=== PATIENT | male | born 1960 | race Caucasian/White ===

== ENCOUNTER 2023-02-01 23:36 | Emergency (ER) | payer MEDICARE, OTHER ==
[~2023-02-01] VITALS: Ht 180.3 cm; Wt 108.9 kg
[2023-02-02] MEDS ORDERED: FURO80TA3 PO (03:38)
[2023-02-02 03:56] VITALS: BP 126/71; TEMP 98.3; O2SAT 98
== END 2023-02-02 03:56 | disposition home or self-care (01) ==
LOC: ER 23:48
DX: S52.502A Unspecified fracture of the lower end of left radius, initial encounter for closed fracture (principal); I11.0 Hypertensive heart disease with heart failure; I50.9 Heart failure, unspecified; I48.91 Unspecified atrial fibrillation; E11.9 Type 2 diabetes mellitus without complications; V69.49XA Driver of heavy transport vehicle injured in collision with other motor vehicles in traffic accident, initial encounter; Y93.89 Activity, other specified; Y92.89 Other specified places as the place of occurrence of the external cause; Y99.8 Other external cause status
CPT/HCPCS: 73110

== ENCOUNTER 2023-03-10 17:54 | Inpatient (IN) | payer MEDICARE, OTHER ==
[~2023-03-10] VITALS: Ht 182.9 cm; Wt 74.4 kg
[~2023-03-10 17:54] MED LIST: FURO80TA3 PO
[2023-03-10] MEDS ORDERED: NALOXONE HCL 0.4 MG/ML AMPUL ONE (18:28)
[2023-03-10] MEDS ORDERED: NALOXONE PREFILLED SYRINGE 2 MG/2 ML SYRINGE ONE (18:29)
[2023-03-10] MEDS ORDERED: BUMETANIDE INJ 4 MG in IV NS 0.9% 50 ML IV ONE (18:30)
[2023-03-10] MEDS ORDERED: NALOXONE HCL 0.4 MG/ML AMPUL IV ONE (18:30)
[2023-03-10 18:42] LABS: ABG BASE EXCESS -1.5 mmol/L; ABG OXYGEN SATURATION 96.2 % (92.0-98.5); ABG PCO2 27.8 mmHg (35.0-45.0); ABG PH 7.488 (7.350-7.450); ABG PO2 77.7 mmHg (75.0-100.0); ABG TOTAL HEMOGLOBIN 13.1 G/dL (13.5-18.0); COHb 1.1 % (0.5-1.5); MetHb 0.3 % (0.0-1.5); O2Hb 94.9 % (94.0-97.0); SITE, ABG Right Radial; VENT MODE, BG NB 100%
[2023-03-10 18:56] LABS: BASOPHILS # (AUTO) 0.1 K/uL (0.0-0.2); BASOPHILS % (AUTO) 0.5 % (0.0-2.0); EOSINOPHILS % (AUTO) 0.3 % (0.0-6.0); HEMATOCRIT 38 % (39-51); HEMOGLOBIN 11.8 g/dL (13.5-17.5); LYMPHOCYTES # (AUTO) 0.4 K/uL (0.8-4.8); LYMPHOCYTES % (AUTO) 2.6 % (20.0-44.0); MEAN CORPUSCULAR HEMOGLOBIN 23 PG (26.0-33.0); MEAN CORPUSCULAR HGB CONC 31 g/dl (31.0-36.0); MEAN CORPUSCULAR VOLUME 74 fL (80-96); MONOCYTES # (AUTO) 0.5 K/uL (0.1-1.30); MONOCYTES % (AUTO) 3.5 % (2.0-12.0); NEUTROPHILS # (AUTO) 13.1 K/uL (1.8-8.9); NEUTROPHILS % (AUTO) 93.1 % (43.0-81.0); PLATELET COUNT (AUTO) 137 K/uL (150-450); RED CELL DISTRIBUTION WIDTH 20.8 % (11.5-15.0); WHITE BLOOD COUNT (AUTO) 14.1 K/uL (4.3-11.0)
[2023-03-10 19:05] LABS: SERUM AMMONIA 114 umol/L (11-32)
[2023-03-10 19:09] LABS: ALANINE AMINOTRANSFERASE 53 U/L (12-78); ALBUMIN 2.4 g/dL (3.4-5.0); ALCOHOL, BLOOD < 3 mg/dL (0-10); ALKALINE PHOSPHATASE 106 U/L (46-116); ASPARTATE AMINOTRANSFERASE 129 U/L (15-37); BILIRUBIN,DIRECT 1.2 mg/dL (0.0-0.2); BILIRUBIN,TOTAL 2.3 mg/dL (0.2-1.0); CALCIUM, SERUM 7.8 mg/dL (8.5-10.1); CARBON DIOXIDE 22 mmol/L (21-32); CHLORIDE 94 mmol/L (98-107); CREATININE 2.1 mg/dL (0.6-1.3); GLUCOSE 119 mg/dL (74-106); INR 1.78 (0.91-1.10); PARTIAL THROMBOPLASTIN TIME 38.2 SEC (24.3-34.3); POTASSIUM 2.9 mmol/L (3.5-5.1); PROTHROMBIN TIME 18.2 SECS (9.2-11.1); SODIUM SERUM 132 mmol/L (136-145); TOTAL PROTEIN, SERUM 6.6 g/dL (6.4-8.2); UREA NITROGEN, BLOOD 48 mg/dL (7-18)
[2023-03-10] MEDS ORDERED: IV PREMIX D5 1/2NS + KCL 1,000 ML IV ONE (19:30)
[2023-03-10] MEDS ORDERED: LACTULOSE 10 G/15 ML UDC (PYXIS) PO ONE (19:30)
[2023-03-10] MEDS ORDERED: LACTULOSE 10 G/15 ML UDC (PYXIS) ONE ×2 (19:47→19:48)
[2023-03-10] MEDS ORDERED: IV NS 0.9% 500 ML BAG IV ONE (20:30)
[2023-03-10] MEDS ORDERED: MAGNESIUM HYDROXIDE 30 ML UDC PO PRN (21:00)
[2023-03-10] MEDS ORDERED: NOREPINEPHRINE 8 MG in IV NS 0.9% 242 ML IV PRN (21:00)
[2023-03-10] MEDS ORDERED: ONDANSETRON HCL/PF 4 MG/2 ML VIAL IVP PRN (21:00)
[2023-03-10] MEDS ORDERED: MAG HYDROX/AL HYDROX/SIMETH 30 ML UDC PO PRN (21:00)
[2023-03-10] MEDS ORDERED: ACETAMINOPHEN 325 MG TABLET PO PRN (21:00)
[2023-03-10 22:00] VITALS: BP 95/70; O2SAT 94
[2023-03-10] MEDS: HEPARIN INFUSION/D5W 500 ML IV PRN (22:08)
[2023-03-10 22:30] VITALS: BP 101/84; O2SAT 94
[2023-03-10 23:00] VITALS: BP 121/88; O2SAT 96
[2023-03-10] MEDS ORDERED: PIPERACI/TAZO 3.375GM/D5W 50ML PB IV ONE (23:29)
[2023-03-10 23:30] VITALS: BP 154/143; O2SAT 97
[2023-03-10] MEDS: POTASSIUM CL. PREMIX PERIPHER. 50 ML IV SCH (23:30)
[2023-03-10] MEDS: ZOSYN IVPB 3.375 G in IV D5W 50ml IV SCH (23:31)
[2023-03-10 23:52] LABS: APPEARANCE,URINE CLEAR (CLEAR); BILIRUBIN,URINE 1+ (NEGATIVE); BLOOD, URINE 1+ Ery/uL (NEGATIVE); COLOR,URINE DARK YELLOW (YELLOW); KETONES,URINE TRACE mg/dL (NEGATIVE); LEUKOCYTE ESTERASE ,URINE NEGATIVE (NEGATIVE); NITRITE, URINE NEGATIVE (NEGATIVE); PH,URINE 5.5 (5.0-8.0); PROTEIN,URINE 1+ mg/dl (NEGATIVE); UGLUCOSE NEGATIVE (NEGATIVE)
[2023-03-11] VITALS (78 sets, daily range): BP systolic 87–144; BP diastolic 56–95; TEMP 98–98.4; O2SAT 87–100
[2023-03-11] MEDS ORDERED: VANCOMYCIN 1 GM /D5W 250 ML PB IV ONE
[2023-03-11] MEDS ORDERED: VANCOMYCIN 2 GM in IV D5W 500 ML IV ONE ×2
[2023-03-11] MEDS: LACTULOSE 10 G/15 ML UDC (PYXIS) PO SCH ×5 (00:02→23:20)
[2023-03-11 00:28] LABS: ADD URINE CULTURE NO; BACTERIA,URINE 1+ /HPF (None Seen); HYALINE CASTS, URINE Few /LPF (None Seen); MUCUS,URINE Few /LPF (None Seen); RBC,URINE NONE SEEN /HPF (0-2); SQUAMOUS EPITHELIAL CELL,UR None Seen /HPF (None Seen); WBC,URINE NONE SEEN /HPF (0-3)
[2023-03-11] MEDS: POTASSIUM CL. PREMIX PERIPHER. 50 ML IV SCH ×3 (00:32→02:13)
[2023-03-11 00:45] LABS: BARBITURATE, URINE NEGATIVE (NEGATIVE); BENZODIAZEPINE, URINE NEGATIVE (NEGATIVE); CANNABINOID, URINE NEGATIVE (NEGATIVE); COCCAINE, URINE NEGATIVE (NEGATIVE); OPIATE, URINE NEGATIVE (NEGATIVE); PHENCYCLIDINE SCREEN,URINE NEGATIVE (NEGATIVE)
[2023-03-11 00:56] LABS: AMPHETAMINE, URINE POSITIVE (NEGATIVE)
[2023-03-11] MEDS: IPRATROPIUM NEB FS 0.5 MG/2.5 ML AMPUL.NEB NEB SCH ×7 (01:48→23:44)
[2023-03-11] MEDS: ALBUTEROL HALF STRENGTH 1.25 MG/3 ML VIAL.NEB NEB SCH ×7 (01:48→23:44)
[2023-03-11] MEDS ORDERED: LORAZEPAM INJ 2 MG/ML VIAL IV ONE ×2 (03:00→22:00)
[2023-03-11] MEDS ORDERED: PIPERACI/TAZO 3.375GM/D5W 50ML PB IV ONE (04:19)
[2023-03-11 05:00] LABS: ABG BASE EXCESS -2.9 mmol/L; ABG OXYGEN SATURATION 98.1 % (92.0-98.5); ABG PCO2 30.5 mmHg (35.0-45.0); ABG PH 7.439 (7.350-7.450); ABG PO2 109.4 mmHg (75.0-100.0); ABG TOTAL HEMOGLOBIN 13.5 G/dL (13.5-18.0); AaDO2 573.1 mmHg; MetHb 0.1 % (0.0-1.5); SITE, ABG Right Radial
[2023-03-11] MEDS: ZOSYN IVPB 3.375 G in IV D5W 50ml IV SCH (05:02)
[2023-03-11 05:23] LABS: BASOPHILS % (AUTO) 0.1 % (0.0-2.0); EOSINOPHILS % (AUTO) 0.1 % (0.0-6.0); HEMATOCRIT 38 % (39-51); HEMOGLOBIN 12.2 g/dL (13.5-17.5); LYMPHOCYTES # (AUTO) 0.3 K/uL (0.8-4.8); LYMPHOCYTES % (AUTO) 2.8 % (20.0-44.0); MEAN CORPUSCULAR HEMOGLOBIN 24 PG (26.0-33.0); MEAN CORPUSCULAR HGB CONC 32 g/dl (31.0-36.0); MEAN CORPUSCULAR VOLUME 74 fL (80-96); MONOCYTES # (AUTO) 0.3 K/uL (0.1-1.30); MONOCYTES % (AUTO) 2.7 % (2.0-12.0); NEUTROPHILS # (AUTO) 8.9 K/uL (1.8-8.9); NEUTROPHILS % (AUTO) 94.3 % (43.0-81.0); PLATELET COUNT (AUTO) 111 K/uL (150-450); RED BLOOD CELL COUNT(AUTO) 5.12 MIL/uL (4.5-6.0); RED CELL DISTRIBUTION WIDTH 20.8 % (11.5-15.0); WHITE BLOOD COUNT (AUTO) 9.4 K/uL (4.3-11.0)
[2023-03-11 05:34] LABS: CALCIUM, SERUM 7.8 mg/dL (8.5-10.1); CREATININE 2.5 mg/dL (0.6-1.3); MAGNESIUM 1.6 mg/dL (1.8-2.4); PHOSPHORUS 3.5 mg/dL (2.5-4.9); POTASSIUM 3.4 mmol/L (3.5-5.1)
[2023-03-11] MEDS: HYDROCORTISONE SOD SUCCINATE 100 MG/2 ML VIAL IV SCH ×3 (09:22→21:00)
[2023-03-11] MEDS: Magnesium 1GM/D5W 100ML PREMIX 100 ML IV SCH ×2 (09:34→11:18)
[2023-03-11] MEDS: NOREPINEPHRINE 8 MG in IV NS 0.9% 242 ML IV PRN ×2 (09:38→18:50)
[2023-03-11] MEDS ORDERED: POTASSIUM CHLORIDE 10 MEQ TABLET.SA PO SCH (10:00)
[2023-03-11] MEDS: PIPERACILLIN /TAZOBACTAM 3.375 G in IV D5W 100 ML IV SCH ×2 (10:47→18:32)
[2023-03-11] MEDS ORDERED: POTASSIUM CL. PREMIX PERIPHER. 50 ML IV SCH (11:00)
[2023-03-11] MEDS: BLOOD SUGAR DIAGNOSTIC 1 EACH STRIP IN SCH ×3 (11:20→23:20)
[2023-03-11] MEDS ORDERED: DEXTROSE 50%-WATER 50 ML DISP.SYRIN IV PRN (11:30)
[2023-03-11] MEDS: RIFAXIMIN 550 MG TABLET PO SCH ×2 (12:55→17:20)
[2023-03-11] MEDS ORDERED: LINA5TAB PO (16:28)
[2023-03-11] MEDS ORDERED: FURO80TA85 PO (16:28)
[2023-03-11] MEDS ORDERED: METF-442 PO (16:28)
[2023-03-11] MEDS ORDERED: METO2.5T2 PO (16:28)
[2023-03-11] MEDS ORDERED: FAMO-131 PO (16:28)
[2023-03-11] MEDS ORDERED: ATOR40TA PO (16:28)
[2023-03-11] MEDS ORDERED: DAPA10TA PO (16:28)
[2023-03-11] MEDS ORDERED: NAPR-1192 PO (16:28)
[2023-03-11] MEDS ORDERED: IBUP-1955 PO (16:28)
[2023-03-11] MEDS ORDERED: BUME2TAB7 PO (16:28)
[2023-03-11] MEDS ORDERED: LISI-768 PO (16:28)
[2023-03-11] MEDS ORDERED: POTA20TA83 PO (16:28)
[2023-03-11] MEDS ORDERED: RIVA10TA PO (16:28)
[2023-03-11] MEDS ORDERED: TADA20TA PO (16:28)
[2023-03-11] MEDS: INSULIN REGULAR, HUMAN 100 UNIT/ML 3 ML VIAL SQ PRN ×2 (17:33→23:22)
[2023-03-11] MEDS: VANCOMYCIN 1.25 GM in IV D5W 250 ML IV SCH (23:01)
[2023-03-12] VITALS (70 sets, daily range): BP systolic 97–149; BP diastolic 57–92; TEMP 97.7–98.8; O2SAT 90–100
[2023-03-12] MEDS: PIPERACILLIN /TAZOBACTAM 3.375 G in IV D5W 100 ML IV SCH ×3 (02:00→17:31)
[2023-03-12] MEDS: ALBUTEROL HALF STRENGTH 1.25 MG/3 ML VIAL.NEB NEB SCH ×6 (03:37→23:36)
[2023-03-12] MEDS: IPRATROPIUM NEB FS 0.5 MG/2.5 ML AMPUL.NEB NEB SCH ×6 (03:37→23:36)
[2023-03-12] MEDS: LACTULOSE 10 G/15 ML UDC (PYXIS) PO SCH ×4 (05:21→23:42)
[2023-03-12] MEDS: HYDROCORTISONE SOD SUCCINATE 100 MG/2 ML VIAL IV SCH ×3 (05:21→20:16)
[2023-03-12 05:22] LABS: BASOPHILS % (AUTO) 0.2 % (0.0-2.0); EOSINOPHILS # (AUTO) 0.6 K/uL (0.0-0.7); EOSINOPHILS % (AUTO) 3.4 % (0.0-6.0); HEMATOCRIT 36 % (39-51); HEMOGLOBIN 11.6 g/dL (13.5-17.5); LYMPHOCYTES # (AUTO) 1.3 K/uL (0.8-4.8); LYMPHOCYTES % (AUTO) 7.6 % (20.0-44.0); MEAN CORPUSCULAR HEMOGLOBIN 23 PG (26.0-33.0); MEAN CORPUSCULAR HGB CONC 32 g/dl (31.0-36.0); MEAN CORPUSCULAR VOLUME 73 fL (80-96); MONOCYTES # (AUTO) 1.1 K/uL (0.1-1.30); MONOCYTES % (AUTO) 6.5 % (2.0-12.0); NEUTROPHILS # (AUTO) 14.1 K/uL (1.8-8.9); NEUTROPHILS % (AUTO) 82.3 % (43.0-81.0); PLATELET COUNT (AUTO) 126 K/uL (150-450); RED BLOOD CELL COUNT(AUTO) 4.97 MIL/uL (4.5-6.0); WHITE BLOOD COUNT (AUTO) 17.1 K/uL (4.3-11.0)
[2023-03-12] MEDS: BLOOD SUGAR DIAGNOSTIC 1 EACH STRIP IN SCH ×3 (05:27→17:21)
[2023-03-12] MEDS: INSULIN REGULAR, HUMAN 100 UNIT/ML 3 ML VIAL SQ PRN ×3 (05:29→17:33)
[2023-03-12] MEDS: HEPARIN INFUSION/D5W 500 ML IV PRN (05:32)
[2023-03-12 05:55] LABS: ALBUMIN 2.3 g/dL (3.4-5.0); BILIRUBIN,TOTAL 2.8 mg/dL (0.2-1.0); CALCIUM, SERUM 8.1 mg/dL (8.5-10.1); CREATININE 2.6 mg/dL (0.6-1.3); MAGNESIUM 2.1 mg/dL (1.8-2.4); PHOSPHORUS 5.1 mg/dL (2.5-4.9); POTASSIUM 3.5 mmol/L (3.5-5.1); TOTAL PROTEIN, SERUM 6.9 g/dL (6.4-8.2)
[2023-03-12] MEDS: RIFAXIMIN 550 MG TABLET PO SCH ×2 (08:53→16:44)
[2023-03-12] MEDS ORDERED: METOLAZONE 2.5 MG TABLET PO SCH (10:00)
[2023-03-12] MEDS ORDERED: OLANZAPINE 10 MG VIAL IM ONE (10:00)
[2023-03-12] MEDS: FUROSEMIDE 100 MG/10 ML VIAL IV SCH ×3 (10:12→17:31)
[2023-03-12] MEDS ORDERED: LORAZEPAM INJ 2 MG/ML VIAL IV ONE (20:30)
[2023-03-12] MEDS: VANCOMYCIN 1.25 GM in IV D5W 250 ML IV SCH (23:15)
[2023-03-13] VITALS (34 sets, daily range): BP systolic 75–113; BP diastolic 54–95; TEMP 97.8–98.9; O2SAT 83–99
[2023-03-13] MEDS: BLOOD SUGAR DIAGNOSTIC 1 EACH STRIP IN SCH ×5 (00:21→23:35)
[2023-03-13] MEDS: INSULIN REGULAR, HUMAN 100 UNIT/ML 3 ML VIAL SQ PRN ×5 (00:23→23:44)
[2023-03-13] MEDS: PIPERACILLIN /TAZOBACTAM 3.375 G in IV D5W 100 ML IV SCH ×3 (02:04→17:23)
[2023-03-13] MEDS: ALBUTEROL HALF STRENGTH 1.25 MG/3 ML VIAL.NEB NEB SCH ×6 (03:37→23:30)
[2023-03-13] MEDS: IPRATROPIUM NEB FS 0.5 MG/2.5 ML AMPUL.NEB NEB SCH ×6 (03:37→23:30)
[2023-03-13] MEDS: HYDROCORTISONE SOD SUCCINATE 100 MG/2 ML VIAL IV SCH (05:38)
[2023-03-13 05:44] LABS: BASOPHILS % (AUTO) 0.1 % (0.0-2.0); EOSINOPHILS % (AUTO) 0.1 % (0.0-6.0); HEMATOCRIT 31 % (39-51); HEMOGLOBIN 9.9 g/dL (13.5-17.5); LYMPHOCYTES % (AUTO) 7.2 % (20.0-44.0); MEAN CORPUSCULAR HEMOGLOBIN 24 PG (26.0-33.0); MEAN CORPUSCULAR HGB CONC 33 g/dl (31.0-36.0); MEAN CORPUSCULAR VOLUME 73 fL (80-96); MONOCYTES # (AUTO) 1.2 K/uL (0.1-1.30); MONOCYTES % (AUTO) 8.3 % (2.0-12.0); NEUTROPHILS # (AUTO) 11.7 K/uL (1.8-8.9); NEUTROPHILS % (AUTO) 84.3 % (43.0-81.0); PLATELET COUNT (AUTO) 89 K/uL (150-450); RED CELL DISTRIBUTION WIDTH 20.5 % (11.5-15.0); WHITE BLOOD COUNT (AUTO) 13.9 K/uL (4.3-11.0)
[2023-03-13 05:50] LABS: CALCIUM, SERUM 8.4 mg/dL (8.5-10.1); CREATININE 2.4 mg/dL (0.6-1.3)
[2023-03-13 05:52] LABS: POTASSIUM 2.5 mmol/L (3.5-5.1)
[2023-03-13] MEDS: LACTULOSE 10 G/15 ML UDC (PYXIS) PO SCH ×4 (06:00→23:35)
[2023-03-13 06:27] LABS: BAND % (MANUAL) 3 % (0.0-5.0); LYMPHOCYTES % (MANUAL) 6 % (16-48); MONOCYTES % (MANUAL) 6 % (0-11.0); NEUTROPHILS % (MANUAL) 85 (42-76); PLATELET ESTIMATE DECREASED
[2023-03-13 06:28] LABS: ANISOCYTOSIS 1+; OVALOCYTES 1+
[2023-03-13] MEDS ORDERED: Z GUARD REMEDY 4 OZ OINT TP PRN (08:00)
[2023-03-13] MEDS: RIFAXIMIN 550 MG TABLET PO SCH ×2 (08:59→17:23)
[2023-03-13] MEDS: POTASSIUM CL. PREMIX PERIPHER. 50 ML IV SCH ×4 (08:59→14:08)
[2023-03-13] MEDS: PROPRANOLOL HCL 10 MG TABLET PO SCH ×2 (09:12→20:54)
[2023-03-13] MEDS: Z GUARD REMEDY 4 OZ OINT TP SCH (09:19)
[2023-03-13 09:34] LABS: ABG BASE EXCESS 5.8 mmol/L; ABG OXYGEN SATURATION 93.4 % (92.0-98.5); ABG PCO2 36.5 mmHg (35.0-45.0); ABG PH 7.517 (7.350-7.450); ABG PO2 68.6 mmHg (75.0-100.0); ABG TOTAL HEMOGLOBIN 11.2 G/dL (13.5-18.0); AaDO2 535.7 mmHg; COHb 0.4 % (0.5-1.5); MetHb 0.1 % (0.0-1.5); O2Hb 92.9 % (94.0-97.0); SITE, ABG Right Radial; VENT MODE, BG 15L NRB MASK
[2023-03-13 09:40] LABS: ALBUMIN 2.2 g/dL (3.4-5.0); BILIRUBIN,DIRECT 1.8 mg/dL (0.0-0.2); BILIRUBIN,TOTAL 2.7 mg/dL (0.2-1.0); TOTAL PROTEIN, SERUM 6.7 g/dL (6.4-8.2)
[2023-03-13] MEDS: PROSOURCE / PROSTAT (PYXIS) 30 ML UDC PO SCH ×2 (13:55→17:26)
[2023-03-13] MEDS: DIGOXIN INJ 0.5 MG/2 ML AMPUL IV SCH ×3 (14:03→23:35)
[2023-03-13 14:20] LABS: CALCIUM, SERUM 8.5 mg/dL (8.5-10.1); CREATININE 2.5 mg/dL (0.6-1.3)
[2023-03-13 14:37] LABS: POTASSIUM 2.8 mmol/L (3.5-5.1)
[2023-03-13 16:32] LABS: CALCIUM, SERUM 8.9 mg/dL (8.5-10.1); CREATININE 2.7 mg/dL (0.6-1.3)
[2023-03-13] MEDS: methylPREDNISolone SOD SUCC 40 MG/ML VIAL IV SCH (20:53)
[2023-03-13] MEDS: VANCOMYCIN 1.25 GM in IV D5W 250 ML IV SCH (23:17)
[2023-03-13] MEDS: LORAZEPAM INJ 2 MG/ML VIAL IV PRN (23:17)
[2023-03-14] VITALS (31 sets, daily range): BP systolic 96–126; BP diastolic 64–82; TEMP 97.7–98.9; O2SAT 89–98
[2023-03-14] MEDS: PIPERACILLIN /TAZOBACTAM 3.375 G in IV D5W 100 ML IV SCH ×3 (01:08→18:25)
[2023-03-14] MEDS: IPRATROPIUM NEB FS 0.5 MG/2.5 ML AMPUL.NEB NEB SCH ×6 (04:14→23:30)
[2023-03-14] MEDS: ALBUTEROL HALF STRENGTH 1.25 MG/3 ML VIAL.NEB NEB SCH ×6 (04:14→23:30)
[2023-03-14 04:42] LABS: ABG BASE EXCESS 2.9 mmol/L; ABG OXYGEN SATURATION 91.4 % (92.0-98.5); ABG PCO2 38.5 mmHg (35.0-45.0); ABG PH 7.461 (7.350-7.450); ABG PO2 64.3 mmHg (75.0-100.0); AaDO2 212.8 mmHg; COHb 0.9 % (0.5-1.5); O2Hb 90.6 % (94.0-97.0); SITE, ABG Right Radial
[2023-03-14 05:16] LABS: HEMATOCRIT 33 % (39-51); HEMOGLOBIN 10.7 g/dL (13.5-17.5); LYMPHOCYTES # (AUTO) 1.7 K/uL (0.8-4.8); LYMPHOCYTES % (AUTO) 11.1 % (20.0-44.0); MEAN CORPUSCULAR HEMOGLOBIN 24 PG (26.0-33.0); MEAN CORPUSCULAR HGB CONC 32 g/dl (31.0-36.0); MEAN CORPUSCULAR VOLUME 73 fL (80-96); MONOCYTES # (AUTO) 0.9 K/uL (0.1-1.30); MONOCYTES % (AUTO) 5.9 % (2.0-12.0); NEUTROPHILS # (AUTO) 12.5 K/uL (1.8-8.9); PLATELET COUNT (AUTO) 81 K/uL (150-450); RED BLOOD CELL COUNT(AUTO) 4.53 MIL/uL (4.5-6.0); RED CELL DISTRIBUTION WIDTH 20.5 % (11.5-15.0); WHITE BLOOD COUNT (AUTO) 15.1 K/uL (4.3-11.0)
[2023-03-14 05:20] LABS: ALBUMIN 2.3 g/dL (3.4-5.0); BILIRUBIN,TOTAL 3.2 mg/dL (0.2-1.0); CALCIUM, SERUM 8.9 mg/dL (8.5-10.1); CREATININE 2.9 mg/dL (0.6-1.3); MAGNESIUM 2.5 mg/dL (1.8-2.4); PHOSPHORUS 5.3 mg/dL (2.5-4.9)
[2023-03-14] MEDS: methylPREDNISolone SOD SUCC 40 MG/ML VIAL IV SCH ×3 (05:26→20:55)
[2023-03-14] MEDS: LACTULOSE 10 G/15 ML UDC (PYXIS) PO SCH ×4 (05:26→23:38)
[2023-03-14] MEDS: BLOOD SUGAR DIAGNOSTIC 1 EACH STRIP IN SCH ×4 (05:26→23:37)
[2023-03-14] MEDS: INSULIN REGULAR, HUMAN 100 UNIT/ML 3 ML VIAL SQ PRN ×4 (05:29→23:54)
[2023-03-14 05:48] LABS: BAND % (MANUAL) 2 % (0.0-5.0); LYMPHOCYTES % (MANUAL) 10 % (16-48); MONOCYTES % (MANUAL) 5 % (0-11.0); NEUTROPHILS % (MANUAL) 83 (42-76)
[2023-03-14 05:49] LABS: ANISOCYTOSIS 1+; OVALOCYTES 2+; PLATELET ESTIMATE DECREASED; TARGET CELLS 1+
[2023-03-14] MEDS: PROPRANOLOL HCL 10 MG TABLET PO SCH ×2 (09:17→20:56)
[2023-03-14] MEDS: RIFAXIMIN 550 MG TABLET PO SCH ×2 (09:17→16:46)
[2023-03-14] MEDS: Z GUARD REMEDY 4 OZ OINT TP SCH (09:17)
[2023-03-14] MEDS: PROSOURCE / PROSTAT (PYXIS) 30 ML UDC PO SCH ×3 (09:19→16:46)
[2023-03-14] MEDS ORDERED: POTASSIUM CHLORIDE 20 MEQ TAB.PRT.SR PO ONE (16:00)
[2023-03-14] MEDS: LORAZEPAM INJ 2 MG/ML VIAL IV PRN (22:34)
[2023-03-14] MEDS: VANCOMYCIN 1 GM in IV D5W 250 ML IV SCH (22:34)
[2023-03-15] VITALS (40 sets, daily range): BP systolic 87–138; BP diastolic 60–98; TEMP 97.8–98.2; O2SAT 84–99
[2023-03-15] MEDS: PIPERACILLIN /TAZOBACTAM 3.375 G in IV D5W 100 ML IV SCH ×3 (01:33→17:58)
[2023-03-15 03:50] LABS: BASOPHILS % (AUTO) 0.2 % (0.0-2.0); HEMATOCRIT 33 % (39-51); HEMOGLOBIN 10.6 g/dL (13.5-17.5); LYMPHOCYTES # (AUTO) 1.6 K/uL (0.8-4.8); LYMPHOCYTES % (AUTO) 12.2 % (20.0-44.0); MEAN CORPUSCULAR HEMOGLOBIN 24 PG (26.0-33.0); MEAN CORPUSCULAR HGB CONC 32 g/dl (31.0-36.0); MEAN CORPUSCULAR VOLUME 73 fL (80-96); MONOCYTES # (AUTO) 0.8 K/uL (0.1-1.30); MONOCYTES % (AUTO) 6.1 % (2.0-12.0); NEUTROPHILS % (AUTO) 81.5 % (43.0-81.0); PLATELET COUNT (AUTO) 114 K/uL (150-450); RED CELL DISTRIBUTION WIDTH 20.3 % (11.5-15.0); WHITE BLOOD COUNT (AUTO) 13.5 K/uL (4.3-11.0)
[2023-03-15 03:59] LABS: CALCIUM, SERUM 8.4 mg/dL (8.5-10.1); CREATININE 3.4 mg/dL (0.6-1.3); MAGNESIUM 2.5 mg/dL (1.8-2.4); PHOSPHORUS 5.7 mg/dL (2.5-4.9); POTASSIUM 2.9 mmol/L (3.5-5.1)
[2023-03-15] MEDS: ALBUTEROL HALF STRENGTH 1.25 MG/3 ML VIAL.NEB NEB SCH ×6 (04:23→23:27)
[2023-03-15] MEDS: IPRATROPIUM NEB FS 0.5 MG/2.5 ML AMPUL.NEB NEB SCH ×6 (04:23→23:27)
[2023-03-15] MEDS: methylPREDNISolone SOD SUCC 40 MG/ML VIAL IV SCH ×3 (04:33→21:03)
[2023-03-15] MEDS: POTASSIUM CHLORIDE 20 MEQ POWDER PACKET PO SCH ×3 (05:21→16:22)
[2023-03-15 05:23] LABS: ANISOCYTOSIS 2+; LYMPHOCYTES % (MANUAL) 13 % (16-48); MONOCYTES % (MANUAL) 3 % (0-11.0); NEUTROPHILS % (MANUAL) 84 (42-76); PLATELET ESTIMATE DECREASED
[2023-03-15] MEDS: LACTULOSE 10 G/15 ML UDC (PYXIS) PO SCH ×3 (05:31→17:58)
[2023-03-15] MEDS: BLOOD SUGAR DIAGNOSTIC 1 EACH STRIP IN SCH ×3 (06:00→17:57)
[2023-03-15] MEDS: INSULIN REGULAR, HUMAN 100 UNIT/ML 3 ML VIAL SQ PRN ×3 (06:08→17:56)
[2023-03-15] MEDS: PROSOURCE / PROSTAT (PYXIS) 30 ML UDC PO SCH ×3 (08:43→16:32)
[2023-03-15] MEDS: Z GUARD REMEDY 4 OZ OINT TP SCH (08:44)
[2023-03-15] MEDS: RIFAXIMIN 550 MG TABLET PO SCH ×2 (08:44→16:22)
[2023-03-15] MEDS: PROPRANOLOL HCL 10 MG TABLET PO SCH ×2 (08:44→21:03)
[2023-03-15] MEDS: QUETIAPINE FUMARATE 25 MG TABLET PO SCH ×2 (10:18→16:22)
[2023-03-15] MEDS ORDERED: ALTEPLASE CATHFLO 2 MG/VIAL XX ONE (16:00)
[2023-03-15] MEDS: OLANZAPINE 10 MG VIAL IM PRN (16:36)
[2023-03-15] MEDS: VANCOMYCIN 1 GM in IV D5W 250 ML IV SCH (22:54)
[2023-03-16] VITALS (22 sets, daily range): BP systolic 88–132; BP diastolic 61–92; TEMP 97.4–98.3; O2SAT 94–100
[2023-03-16] MEDS: BLOOD SUGAR DIAGNOSTIC 1 EACH STRIP IN SCH ×4 (00:35→18:01)
[2023-03-16] MEDS: PIPERACILLIN /TAZOBACTAM 3.375 G in IV D5W 100 ML IV SCH ×2 (01:37→09:38)
[2023-03-16] MEDS: IPRATROPIUM NEB FS 0.5 MG/2.5 ML AMPUL.NEB NEB SCH ×5 (03:28→19:25)
[2023-03-16] MEDS: ALBUTEROL HALF STRENGTH 1.25 MG/3 ML VIAL.NEB NEB SCH ×5 (03:28→19:25)
[2023-03-16 04:42] LABS: BASOPHILS % (AUTO) 0.2 % (0.0-2.0); HEMATOCRIT 33 % (39-51); HEMOGLOBIN 10.4 g/dL (13.5-17.5); LYMPHOCYTES # (AUTO) 1.2 K/uL (0.8-4.8); LYMPHOCYTES % (AUTO) 8.4 % (20.0-44.0); MEAN CORPUSCULAR HEMOGLOBIN 23 PG (26.0-33.0); MEAN CORPUSCULAR HGB CONC 32 g/dl (31.0-36.0); MEAN CORPUSCULAR VOLUME 74 fL (80-96); MONOCYTES # (AUTO) 0.8 K/uL (0.1-1.30); MONOCYTES % (AUTO) 5.3 % (2.0-12.0); NEUTROPHILS # (AUTO) 12.7 K/uL (1.8-8.9); NEUTROPHILS % (AUTO) 86.1 % (43.0-81.0); PLATELET COUNT (AUTO) 126 K/uL (150-450); RED BLOOD CELL COUNT(AUTO) 4.43 MIL/uL (4.5-6.0); RED CELL DISTRIBUTION WIDTH 20.6 % (11.5-15.0); WHITE BLOOD COUNT (AUTO) 14.8 K/uL (4.3-11.0)
[2023-03-16 04:46] LABS: CALCIUM, SERUM 8.5 mg/dL (8.5-10.1); CREATININE 2.6 mg/dL (0.6-1.3); MAGNESIUM 2.6 mg/dL (1.8-2.4); PHOSPHORUS 5.8 mg/dL (2.5-4.9); POTASSIUM 3.1 mmol/L (3.5-5.1)
[2023-03-16] MEDS: methylPREDNISolone SOD SUCC 40 MG/ML VIAL IV SCH ×3 (05:11→21:10)
[2023-03-16] MEDS: LACTULOSE 10 G/15 ML UDC (PYXIS) PO SCH ×6 (05:12→23:52)
[2023-03-16] MEDS: INSULIN REGULAR, HUMAN 100 UNIT/ML 3 ML VIAL SQ PRN ×3 (05:45→18:02)
[2023-03-16 05:58] LABS: LYMPHOCYTES % (MANUAL) 9 % (16-48); MONOCYTES % (MANUAL) 4 % (0-11.0); NEUTROPHILS % (MANUAL) 87 (42-76); PLATELET ESTIMATE DECREASED
[2023-03-16 05:59] LABS: ANISOCYTOSIS 1+
[2023-03-16 06:07] LABS: HEPATITIS A AB, IgM Negative (Negative); HEPATITIS B SURFACE AB Non Reactive (.)
[2023-03-16] MEDS: PROPRANOLOL HCL 10 MG TABLET PO SCH ×2 (09:00→21:09)
[2023-03-16] MEDS: QUETIAPINE FUMARATE 25 MG TABLET PO SCH ×2 (09:32→17:34)
[2023-03-16] MEDS: RIFAXIMIN 550 MG TABLET PO SCH ×2 (09:32→17:34)
[2023-03-16] MEDS: PROSOURCE / PROSTAT (PYXIS) 30 ML UDC PO SCH ×3 (09:33→17:37)
[2023-03-16] MEDS: Z GUARD REMEDY 4 OZ OINT TP SCH (09:33)
[2023-03-16] MEDS ORDERED: VANCOMYCIN 500 MG in IV D5W 100 ML IV PRN (11:00)
[2023-03-16] MEDS: POTASSIUM CL. PREMIX PERIPHER. 50 ML IV SCH ×4 (16:30→20:18)
[2023-03-16] MEDS: PIPERACILLIN /TAZOBACTAM 2.25 G in IV D5W 50 ML IV SCH ×2 (18:04→21:09)
[2023-03-17] VITALS (19 sets, daily range): BP systolic 103–111; BP diastolic 68–78; TEMP 97.5–98.3; O2SAT 93–98
[2023-03-17] MEDS: IPRATROPIUM NEB FS 0.5 MG/2.5 ML AMPUL.NEB NEB SCH ×7 (00:08→23:48)
[2023-03-17] MEDS: ALBUTEROL HALF STRENGTH 1.25 MG/3 ML VIAL.NEB NEB SCH ×7 (00:08→23:48)
[2023-03-17] MEDS: BLOOD SUGAR DIAGNOSTIC 1 EACH STRIP IN SCH ×5 (00:09→23:36)
[2023-03-17] MEDS: INSULIN REGULAR, HUMAN 100 UNIT/ML 3 ML VIAL SQ PRN ×5 (00:12→23:37)
[2023-03-17] MEDS: methylPREDNISolone SOD SUCC 40 MG/ML VIAL IV SCH ×3 (04:10→21:06)
[2023-03-17] MEDS: PIPERACILLIN /TAZOBACTAM 2.25 G in IV D5W 50 ML IV SCH ×3 (04:11→21:06)
[2023-03-17] MEDS: LACTULOSE 10 G/15 ML UDC (PYXIS) PO SCH ×4 (05:02→23:36)
[2023-03-17 07:00] LABS: HEMATOCRIT 34 % (39-51); HEMOGLOBIN 10.6 g/dL (13.5-17.5); LYMPHOCYTES # (AUTO) 1.1 K/uL (0.8-4.8); LYMPHOCYTES % (AUTO) 6.5 % (20.0-44.0); MEAN CORPUSCULAR HEMOGLOBIN 23 PG (26.0-33.0); MEAN CORPUSCULAR HGB CONC 31 g/dl (31.0-36.0); MEAN CORPUSCULAR VOLUME 74 fL (80-96); MONOCYTES # (AUTO) 0.5 K/uL (0.1-1.30); NEUTROPHILS # (AUTO) 15.7 K/uL (1.8-8.9); NEUTROPHILS % (AUTO) 90.5 % (43.0-81.0); PLATELET COUNT (AUTO) 171 K/uL (150-450); RED BLOOD CELL COUNT(AUTO) 4.64 MIL/uL (4.5-6.0); RED CELL DISTRIBUTION WIDTH 20.6 % (11.5-15.0); WHITE BLOOD COUNT (AUTO) 17.4 K/uL (4.3-11.0)
[2023-03-17 07:25] LABS: CALCIUM, SERUM 8.3 mg/dL (8.5-10.1); MAGNESIUM 2.4 mg/dL (1.8-2.4); PHOSPHORUS 3.5 mg/dL (2.5-4.9)
[2023-03-17 07:32] LABS: POTASSIUM 2.8 mmol/L (3.5-5.1)
[2023-03-17] MEDS: CLOTRIMAZOLE 1% 15 GM TUBE TP SCH ×2 (09:00→17:46)
[2023-03-17] MEDS: Z GUARD REMEDY 4 OZ OINT TP SCH (09:00)
[2023-03-17] MEDS ORDERED: POTASSIUM CHLORIDE 20 MEQ TAB.PRT.SR PO ONE ×2 (09:30→10:00)
[2023-03-17] MEDS: POTASSIUM CHLORIDE 20 MEQ TAB.PRT.SR PO SCH ×5 (09:55→12:38)
[2023-03-17] MEDS: RIFAXIMIN 550 MG TABLET PO SCH ×2 (09:55→17:45)
[2023-03-17] MEDS: QUETIAPINE FUMARATE 25 MG TABLET PO SCH ×2 (09:55→17:45)
[2023-03-17] MEDS: PROSOURCE / PROSTAT (PYXIS) 30 ML UDC PO SCH ×3 (09:56→17:45)
[2023-03-17] MEDS: PROPRANOLOL HCL 10 MG TABLET PO SCH ×2 (09:59→21:07)
[2023-03-17] MEDS: LORAZEPAM INJ 2 MG/ML VIAL IV PRN ×2 (12:37→20:56)
[2023-03-18] VITALS (17 sets, daily range): BP systolic 97–138; BP diastolic 53–100; TEMP 97.7–98.4; O2SAT 93–100
[2023-03-18] MEDS: IPRATROPIUM NEB FS 0.5 MG/2.5 ML AMPUL.NEB NEB SCH ×6 (03:30→23:59)
[2023-03-18] MEDS: ALBUTEROL HALF STRENGTH 1.25 MG/3 ML VIAL.NEB NEB SCH ×6 (03:30→23:58)
[2023-03-18] MEDS: LACTULOSE 10 G/15 ML UDC (PYXIS) PO SCH ×4 (05:32→23:10)
[2023-03-18] MEDS: BLOOD SUGAR DIAGNOSTIC 1 EACH STRIP IN SCH ×3 (05:32→16:54)
[2023-03-18] MEDS: PIPERACILLIN /TAZOBACTAM 2.25 G in IV D5W 50 ML IV SCH ×3 (05:32→20:23)
[2023-03-18] MEDS: methylPREDNISolone SOD SUCC 40 MG/ML VIAL IV SCH ×3 (05:32→20:23)
[2023-03-18] MEDS: INSULIN REGULAR, HUMAN 100 UNIT/ML 3 ML VIAL SQ PRN ×2 (05:34→23:49)
[2023-03-18 07:16] LABS: ALBUMIN 2.3 g/dL (3.4-5.0); BILIRUBIN,TOTAL 2.5 mg/dL (0.2-1.0); CALCIUM, SERUM 8.8 mg/dL (8.5-10.1); CREATININE 1.4 mg/dL (0.6-1.3); MAGNESIUM 2.6 mg/dL (1.8-2.4); PHOSPHORUS 3.7 mg/dL (2.5-4.9); POTASSIUM 3.4 mmol/L (3.5-5.1); TOTAL PROTEIN, SERUM 6.9 g/dL (6.4-8.2)
[2023-03-18 07:31] LABS: BASOPHILS % (AUTO) 0.1 % (0.0-2.0); HEMATOCRIT 35 % (39-51); HEMOGLOBIN 10.8 g/dL (13.5-17.5); LYMPHOCYTES # (AUTO) 0.8 K/uL (0.8-4.8); LYMPHOCYTES % (AUTO) 5.1 % (20.0-44.0); MEAN CORPUSCULAR HEMOGLOBIN 23 PG (26.0-33.0); MEAN CORPUSCULAR HGB CONC 31 g/dl (31.0-36.0); MEAN CORPUSCULAR VOLUME 74 fL (80-96); MONOCYTES # (AUTO) 0.7 K/uL (0.1-1.30); NEUTROPHILS % (AUTO) 90.8 % (43.0-81.0); PLATELET COUNT (AUTO) 167 K/uL (150-450); RED BLOOD CELL COUNT(AUTO) 4.72 MIL/uL (4.5-6.0); RED CELL DISTRIBUTION WIDTH 20.8 % (11.5-15.0); WHITE BLOOD COUNT (AUTO) 16.5 K/uL (4.3-11.0)
[2023-03-18] MEDS: QUETIAPINE FUMARATE 25 MG TABLET PO SCH ×2 (08:51→16:54)
[2023-03-18] MEDS: RIFAXIMIN 550 MG TABLET PO SCH ×2 (08:51→16:54)
[2023-03-18] MEDS: PROPRANOLOL HCL 10 MG TABLET PO SCH ×2 (08:52→20:26)
[2023-03-18] MEDS: PROSOURCE / PROSTAT (PYXIS) 30 ML UDC PO SCH ×3 (08:53→16:58)
[2023-03-18] MEDS: Z GUARD REMEDY 4 OZ OINT TP SCH (08:54)
[2023-03-18] MEDS: CLOTRIMAZOLE 1% 15 GM TUBE TP SCH ×2 (09:00→16:55)
[2023-03-18] MEDS ORDERED: HEPARIN SODIUM, PORCINE 1,000 UNIT/ML VIAL ONE (09:54)
[2023-03-18] MEDS ORDERED: LIDOCAINE 1% INJ 50 ML MDV IJ ONE (09:54)
[2023-03-18] MEDS ORDERED: IOHEXOL 50 ML IV ONE (09:54)
[2023-03-18] MEDS ORDERED: VANCOMYCIN 1 GM in IV D5W 250ml IV ONE (10:00)
[2023-03-18] MEDS: POTASSIUM CHLORIDE 20 MEQ TAB.PRT.SR PO SCH ×3 (10:06→13:19)
[2023-03-18] MEDS ORDERED: FENTANYL PF 100MCG/2ML AMPUL ONE (11:12)
[2023-03-18] MEDS ORDERED: IV NS 0.9% 500 ML IV ONE (14:30)
[2023-03-18] MEDS: LORAZEPAM INJ 2 MG/ML VIAL IV PRN (16:50)
[2023-03-19] VITALS (12 sets, daily range): BP systolic 111–158; BP diastolic 71–94; TEMP 97–97.9; O2SAT 92–100
[2023-03-19] MEDS: BLOOD SUGAR DIAGNOSTIC 1 EACH STRIP IN SCH ×4 (00:01→17:08)
[2023-03-19] MEDS: LORAZEPAM INJ 2 MG/ML VIAL IV PRN ×3 (00:47→23:07)
[2023-03-19] MEDS: OLANZAPINE 10 MG VIAL IM PRN ×2 (03:00→13:43)
[2023-03-19] MEDS: ALBUTEROL HALF STRENGTH 1.25 MG/3 ML VIAL.NEB NEB SCH ×6 (03:33→23:30)
[2023-03-19] MEDS: IPRATROPIUM NEB FS 0.5 MG/2.5 ML AMPUL.NEB NEB SCH ×6 (03:33→23:30)
[2023-03-19] MEDS: methylPREDNISolone SOD SUCC 40 MG/ML VIAL IV SCH ×3 (05:19→20:31)
[2023-03-19] MEDS: PIPERACILLIN /TAZOBACTAM 2.25 G in IV D5W 50 ML IV SCH ×3 (05:19→20:31)
[2023-03-19] MEDS: LACTULOSE 10 G/15 ML UDC (PYXIS) PO SCH ×2 (05:20→11:53)
[2023-03-19] MEDS: INSULIN REGULAR, HUMAN 100 UNIT/ML 3 ML VIAL SQ PRN ×3 (05:54→17:09)
[2023-03-19 06:22] LABS: BASOPHILS # (AUTO) 0.1 K/uL (0.0-0.2); BASOPHILS % (AUTO) 0.6 % (0.0-2.0); HEMATOCRIT 34 % (39-51); HEMOGLOBIN 10.5 g/dL (13.5-17.5); LYMPHOCYTES # (AUTO) 0.9 K/uL (0.8-4.8); LYMPHOCYTES % (AUTO) 5.8 % (20.0-44.0); MEAN CORPUSCULAR HEMOGLOBIN 24 PG (26.0-33.0); MEAN CORPUSCULAR HGB CONC 31 g/dl (31.0-36.0); MEAN CORPUSCULAR VOLUME 75 fL (80-96); MONOCYTES # (AUTO) 0.8 K/uL (0.1-1.30); MONOCYTES % (AUTO) 5.7 % (2.0-12.0); NEUTROPHILS # (AUTO) 12.9 K/uL (1.8-8.9); NEUTROPHILS % (AUTO) 87.9 % (43.0-81.0); PLATELET COUNT (AUTO) 175 K/uL (150-450); RED BLOOD CELL COUNT(AUTO) 4.47 MIL/uL (4.5-6.0); RED CELL DISTRIBUTION WIDTH 21.3 % (11.5-15.0); WHITE BLOOD COUNT (AUTO) 14.7 K/uL (4.3-11.0)
[2023-03-19 06:49] LABS: CALCIUM, SERUM 8.9 mg/dL (8.5-10.1); CREATININE 1.3 mg/dL (0.6-1.3); MAGNESIUM 2.5 mg/dL (1.8-2.4); PHOSPHORUS 2.4 mg/dL (2.5-4.9); POTASSIUM 3.5 mmol/L (3.5-5.1)
[2023-03-19] MEDS: Z GUARD REMEDY 4 OZ OINT TP SCH (08:01)
[2023-03-19] MEDS: CLOTRIMAZOLE 1% 15 GM TUBE TP SCH ×2 (08:01→16:13)
[2023-03-19] MEDS: PROSOURCE / PROSTAT (PYXIS) 30 ML UDC PO SCH ×3 (08:08→16:13)
[2023-03-19] MEDS: QUETIAPINE FUMARATE 25 MG TABLET PO SCH ×2 (08:08→16:16)
[2023-03-19] MEDS: PROPRANOLOL HCL 10 MG TABLET PO SCH ×2 (08:08→21:23)
[2023-03-19] MEDS: RIFAXIMIN 550 MG TABLET PO SCH ×2 (08:08→16:16)
[2023-03-19] MEDS: IV 1/2NS 1000 ML 1,000 ML IV PRN ×2 (08:14→17:39)
[2023-03-19] MEDS ORDERED: VANCOMYCIN 1 GM in IV D5W 250ml IV ONE (11:00)
[2023-03-19] MEDS ORDERED: K PHOS NEUTRAL 250 MG TABLET PO ONE (17:00)
[2023-03-20] VITALS: BP 135/87; TEMP 97.5; O2SAT 94
[2023-03-20] MEDS: BLOOD SUGAR DIAGNOSTIC 1 EACH STRIP IN SCH ×4 (01:43→17:26)
[2023-03-20] MEDS: INSULIN REGULAR, HUMAN 100 UNIT/ML 3 ML VIAL SQ PRN ×4 (01:43→17:30)
[2023-03-20] MEDS: ALBUTEROL HALF STRENGTH 1.25 MG/3 ML VIAL.NEB NEB SCH ×6 (03:30→23:30)
[2023-03-20] MEDS: IPRATROPIUM NEB FS 0.5 MG/2.5 ML AMPUL.NEB NEB SCH ×6 (03:30→23:30)
[2023-03-20 04:00] VITALS: BP 142/92; TEMP 97.3; O2SAT 92
[2023-03-20] MEDS: IV 1/2NS 1000 ML 1,000 ML IV PRN (04:20)
[2023-03-20] MEDS: methylPREDNISolone SOD SUCC 40 MG/ML VIAL IV SCH ×3 (04:21→21:06)
[2023-03-20] MEDS: PIPERACILLIN /TAZOBACTAM 2.25 G in IV D5W 50 ML IV SCH ×3 (04:21→21:06)
[2023-03-20 07:23] LABS: BASOPHILS % (AUTO) 0.2 % (0.0-2.0); HEMATOCRIT 34 % (39-51); HEMOGLOBIN 10.2 g/dL (13.5-17.5); LYMPHOCYTES # (AUTO) 0.8 K/uL (0.8-4.8); LYMPHOCYTES % (AUTO) 6.5 % (20.0-44.0); MEAN CORPUSCULAR HEMOGLOBIN 24 PG (26.0-33.0); MEAN CORPUSCULAR HGB CONC 30 g/dl (31.0-36.0); MEAN CORPUSCULAR VOLUME 78 fL (80-96); MONOCYTES # (AUTO) 0.5 K/uL (0.1-1.30); MONOCYTES % (AUTO) 3.6 % (2.0-12.0); NEUTROPHILS # (AUTO) 11.3 K/uL (1.8-8.9); NEUTROPHILS % (AUTO) 89.7 % (43.0-81.0); PLATELET COUNT (AUTO) 137 K/uL (150-450); RED BLOOD CELL COUNT(AUTO) 4.36 MIL/uL (4.5-6.0); RED CELL DISTRIBUTION WIDTH 21.4 % (11.5-15.0); WHITE BLOOD COUNT (AUTO) 12.6 K/uL (4.3-11.0)
[2023-03-20 07:42] LABS: CALCIUM, SERUM 8.3 mg/dL (8.5-10.1); MAGNESIUM 2.2 mg/dL (1.8-2.4); PHOSPHORUS 3.2 mg/dL (2.5-4.9); POTASSIUM 3.6 mmol/L (3.5-5.1)
[2023-03-20 08:00] VITALS: BP 150/94; TEMP 97; O2SAT 100
[2023-03-20] MEDS: PROPRANOLOL HCL 10 MG TABLET PO SCH ×2 (08:31→21:05)
[2023-03-20] MEDS: LORAZEPAM INJ 2 MG/ML VIAL IV PRN ×2 (08:32→23:14)
[2023-03-20] MEDS: QUETIAPINE FUMARATE 25 MG TABLET PO SCH ×2 (08:32→16:48)
[2023-03-20] MEDS: RIFAXIMIN 550 MG TABLET PO SCH ×2 (08:32→16:48)
[2023-03-20] MEDS: PROSOURCE / PROSTAT (PYXIS) 30 ML UDC PO SCH ×3 (08:37→16:48)
[2023-03-20] MEDS: CLOTRIMAZOLE 1% 15 GM TUBE TP SCH ×2 (08:38→16:48)
[2023-03-20] MEDS: Z GUARD REMEDY 4 OZ OINT TP SCH (08:38)
[2023-03-20] MEDS: VANCOMYCIN 1 GM in IV D5W 250ml IV SCH ×2 (08:39→21:06)
[2023-03-20 12:00] VITALS: BP 114/68; TEMP 98.6; O2SAT 100
[2023-03-20] MEDS ORDERED: IV NS 0.9% 250 ML IV PRN (15:30)
[2023-03-20 16:00] VITALS: BP 134/84; TEMP 97.2; O2SAT 100
[2023-03-20 20:00] VITALS: BP 119/68; TEMP 97.7; O2SAT 94
[2023-03-21] VITALS: BP 137/79; TEMP 97.5; O2SAT 92
[2023-03-21] MEDS: BLOOD SUGAR DIAGNOSTIC 1 EACH STRIP IN SCH ×4 (00:13→17:09)
[2023-03-21] MEDS: INSULIN REGULAR, HUMAN 100 UNIT/ML 3 ML VIAL SQ PRN ×5 (00:15→23:48)
[2023-03-21 02:07] LABS: HEPATITIS B CORE AB, IgM Negative (Negative); HEPATITIS B CORE AB, TOTAL Negative (Negative)
[2023-03-21] MEDS: IPRATROPIUM NEB FS 0.5 MG/2.5 ML AMPUL.NEB NEB SCH ×7 (03:30→23:30)
[2023-03-21] MEDS: ALBUTEROL HALF STRENGTH 1.25 MG/3 ML VIAL.NEB NEB SCH ×7 (03:30→23:30)
[2023-03-21 04:00] VITALS: BP 143/86; TEMP 97.5; O2SAT 97
[2023-03-21] MEDS: PIPERACILLIN /TAZOBACTAM 2.25 G in IV D5W 50 ML IV SCH ×3 (06:03→21:51)
[2023-03-21] MEDS: methylPREDNISolone SOD SUCC 40 MG/ML VIAL IV SCH ×3 (06:03→17:13)
[2023-03-21 07:28] LABS: BASOPHILS % (AUTO) 0.1 % (0.0-2.0); HEMATOCRIT 32 % (39-51); HEMOGLOBIN 9.8 g/dL (13.5-17.5); LYMPHOCYTES # (AUTO) 0.9 K/uL (0.8-4.8); LYMPHOCYTES % (AUTO) 6.7 % (20.0-44.0); MEAN CORPUSCULAR HEMOGLOBIN 23 PG (26.0-33.0); MEAN CORPUSCULAR HGB CONC 31 g/dl (31.0-36.0); MEAN CORPUSCULAR VOLUME 76 fL (80-96); MONOCYTES # (AUTO) 0.6 K/uL (0.1-1.30); MONOCYTES % (AUTO) 4.6 % (2.0-12.0); NEUTROPHILS # (AUTO) 12.3 K/uL (1.8-8.9); NEUTROPHILS % (AUTO) 88.6 % (43.0-81.0); PLATELET COUNT (AUTO) 150 K/uL (150-450); RED BLOOD CELL COUNT(AUTO) 4.25 MIL/uL (4.5-6.0); RED CELL DISTRIBUTION WIDTH 22.1 % (11.5-15.0); WHITE BLOOD COUNT (AUTO) 13.9 K/uL (4.3-11.0)
[2023-03-21 07:29] LABS: CALCIUM, SERUM 8.3 mg/dL (8.5-10.1); CREATININE 1.1 mg/dL (0.6-1.3); MAGNESIUM 2.1 mg/dL (1.8-2.4); PHOSPHORUS 2.5 mg/dL (2.5-4.9); POTASSIUM 3.7 mmol/L (3.5-5.1)
[2023-03-21 08:00] VITALS: BP 123/94; TEMP 98.1; O2SAT 97
[2023-03-21] MEDS: LORAZEPAM INJ 2 MG/ML VIAL IV PRN ×2 (08:55→23:51)
[2023-03-21] MEDS: RIFAXIMIN 550 MG TABLET PO SCH ×2 (08:56→17:13)
[2023-03-21] MEDS: CLOTRIMAZOLE 1% 15 GM TUBE TP SCH ×2 (08:56→17:13)
[2023-03-21] MEDS: QUETIAPINE FUMARATE 25 MG TABLET PO SCH ×2 (08:56→17:13)
[2023-03-21] MEDS: GLUCERNA SHAKE 237 ML CAN PO SCH (08:56)
[2023-03-21] MEDS: PROPRANOLOL HCL 10 MG TABLET PO SCH ×2 (09:04→21:50)
[2023-03-21] MEDS: PROSOURCE / PROSTAT (PYXIS) 30 ML UDC PO SCH ×3 (09:05→17:13)
[2023-03-21] MEDS: VANCOMYCIN 1 GM in IV D5W 250ml IV SCH ×2 (09:07→21:51)
[2023-03-21] MEDS: Z GUARD REMEDY 4 OZ OINT TP SCH (09:07)
[2023-03-21 12:00] VITALS: BP_SYST 12; BP_SYST 127; BP_DIAS 94; TEMP 98.7; O2SAT 97
[2023-03-21 16:00] VITALS: BP 137/68; TEMP 98.1; O2SAT 95
[2023-03-21] MEDS ORDERED: LIDOCAINE 1% INJ 50 ML MDV IJ ONE (17:00)
[2023-03-21 20:00] VITALS: BP 128/72; TEMP 97.2; O2SAT 94
[2023-03-22] VITALS: BP 130/90; TEMP 97.2; O2SAT 96
[2023-03-22] MEDS: BLOOD SUGAR DIAGNOSTIC 1 EACH STRIP IN SCH ×4 (00:36→18:32)
[2023-03-22] MEDS: ALBUTEROL HALF STRENGTH 1.25 MG/3 ML VIAL.NEB NEB SCH ×6 (03:30→23:30)
[2023-03-22] MEDS: IPRATROPIUM NEB FS 0.5 MG/2.5 ML AMPUL.NEB NEB SCH ×6 (03:30→23:30)
[2023-03-22 04:00] VITALS: BP 134/94; TEMP 97.5; O2SAT 94
[2023-03-22] MEDS: PIPERACILLIN /TAZOBACTAM 2.25 G in IV D5W 50 ML IV SCH ×3 (05:54→20:17)
[2023-03-22] MEDS: INSULIN REGULAR, HUMAN 100 UNIT/ML 3 ML VIAL SQ PRN ×3 (07:15→18:34)
[2023-03-22 08:00] VITALS: BP_SYST 131; BP_SYST 134; BP_DIAS 90; BP_DIAS 94; TEMP 97.5; O2SAT 92
[2023-03-22 08:02] LABS: BASOPHILS % (AUTO) 0.2 % (0.0-2.0); HEMATOCRIT 31 % (39-51); HEMOGLOBIN 9.5 g/dL (13.5-17.5); LYMPHOCYTES % (AUTO) 6.4 % (20.0-44.0); MEAN CORPUSCULAR HEMOGLOBIN 23 PG (26.0-33.0); MEAN CORPUSCULAR HGB CONC 30 g/dl (31.0-36.0); MEAN CORPUSCULAR VOLUME 76 fL (80-96); MONOCYTES # (AUTO) 0.8 K/uL (0.1-1.30); MONOCYTES % (AUTO) 5.6 % (2.0-12.0); NEUTROPHILS # (AUTO) 13.1 K/uL (1.8-8.9); NEUTROPHILS % (AUTO) 87.8 % (43.0-81.0); PLATELET COUNT (AUTO) 141 K/uL (150-450); RED BLOOD CELL COUNT(AUTO) 4.11 MIL/uL (4.5-6.0); RED CELL DISTRIBUTION WIDTH 21.6 % (11.5-15.0)
[2023-03-22 08:13] LABS: CALCIUM, SERUM 8.6 mg/dL (8.5-10.1); CREATININE 1.1 mg/dL (0.6-1.3); PHOSPHORUS 2.4 mg/dL (2.5-4.9); POTASSIUM 3.6 mmol/L (3.5-5.1)
[2023-03-22] MEDS: PROPRANOLOL HCL 10 MG TABLET PO SCH ×2 (09:47→20:38)
[2023-03-22] MEDS: VANCOMYCIN 1 GM in IV D5W 250ml IV SCH ×2 (09:47→21:26)
[2023-03-22] MEDS: methylPREDNISolone SOD SUCC 40 MG/ML VIAL IV SCH (09:48)
[2023-03-22] MEDS: GLUCERNA SHAKE 237 ML CAN PO SCH (09:48)
[2023-03-22] MEDS: RIFAXIMIN 550 MG TABLET PO SCH ×2 (09:48→16:23)
[2023-03-22] MEDS: PROSOURCE / PROSTAT (PYXIS) 30 ML UDC PO SCH ×3 (09:48→17:38)
[2023-03-22] MEDS: CLOTRIMAZOLE 1% 15 GM TUBE TP SCH ×2 (09:49→17:44)
[2023-03-22] MEDS: Z GUARD REMEDY 4 OZ OINT TP SCH (09:49)
[2023-03-22] MEDS: QUETIAPINE FUMARATE 25 MG TABLET PO SCH ×2 (09:51→16:23)
[2023-03-22] MEDS ORDERED: LIDOCAINE 1% INJ 50 ML MDV IJ ONE (10:00)
[2023-03-22] MEDS: LORAZEPAM INJ 2 MG/ML VIAL IV PRN ×2 (10:12→16:23)
[2023-03-22 12:00] VITALS: BP 129/86; TEMP 97.1; O2SAT 99
[2023-03-22] MEDS: IV 1/2NS 1000 ML 1,000 ML IV SCH ×2 (12:24→22:26)
[2023-03-22] MEDS ORDERED: K PHOS NEUTRAL 250 MG TABLET PO ONE (15:30)
[2023-03-22 16:00] VITALS: BP 123/105; TEMP 97.3; O2SAT 97
[2023-03-22 20:00] VITALS: BP 104/73; TEMP 97.5; O2SAT 95
[2023-03-23] VITALS: BP 102/70; TEMP 97.7; O2SAT 94
[2023-03-23] MEDS: BLOOD SUGAR DIAGNOSTIC 1 EACH STRIP IN SCH ×4 (00:11→18:22)
[2023-03-23] MEDS: INSULIN REGULAR, HUMAN 100 UNIT/ML 3 ML VIAL SQ PRN ×4 (00:16→18:42)
[2023-03-23] MEDS: IPRATROPIUM NEB FS 0.5 MG/2.5 ML AMPUL.NEB NEB SCH ×6 (02:52→23:30)
[2023-03-23] MEDS: ALBUTEROL HALF STRENGTH 1.25 MG/3 ML VIAL.NEB NEB SCH ×6 (02:52→23:30)
[2023-03-23 04:00] VITALS: BP 113/70; TEMP 97.6; O2SAT 94
[2023-03-23] MEDS: PIPERACILLIN /TAZOBACTAM 2.25 G in IV D5W 50 ML IV SCH ×3 (05:35→21:12)
[2023-03-23 06:55] LABS: BASOPHILS % (AUTO) 0.1 % (0.0-2.0); EOSINOPHILS % (AUTO) 0.1 % (0.0-6.0); HEMATOCRIT 43 % (39-51); HEMOGLOBIN 13.2 g/dL (13.5-17.5); LYMPHOCYTES # (AUTO) 0.7 K/uL (0.8-4.8); LYMPHOCYTES % (AUTO) 7.5 % (20.0-44.0); MEAN CORPUSCULAR HEMOGLOBIN 24 PG (26.0-33.0); MEAN CORPUSCULAR HGB CONC 31 g/dl (31.0-36.0); MEAN CORPUSCULAR VOLUME 77 fL (80-96); MONOCYTES # (AUTO) 0.4 K/uL (0.1-1.30); MONOCYTES % (AUTO) 4.8 % (2.0-12.0); NEUTROPHILS # (AUTO) 7.9 K/uL (1.8-8.9); NEUTROPHILS % (AUTO) 87.5 % (43.0-81.0); PLATELET COUNT (AUTO) 99 K/uL (150-450); RED BLOOD CELL COUNT(AUTO) 5.58 MIL/uL (4.5-6.0); RED CELL DISTRIBUTION WIDTH 22.8 % (11.5-15.0)
[2023-03-23 07:03] LABS: CALCIUM, SERUM 8.2 mg/dL (8.5-10.1); MAGNESIUM 1.9 mg/dL (1.8-2.4); PHOSPHORUS 2.5 mg/dL (2.5-4.9); POTASSIUM 3.6 mmol/L (3.5-5.1)
[2023-03-23 08:00] VITALS: BP 108/77; TEMP 98; O2SAT 97
[2023-03-23] MEDS: PROPRANOLOL HCL 10 MG TABLET PO SCH ×2 (09:00→21:00)
[2023-03-23] MEDS: QUETIAPINE FUMARATE 25 MG TABLET PO SCH ×2 (09:20→18:21)
[2023-03-23] MEDS: LORAZEPAM INJ 2 MG/ML VIAL IV PRN (09:20)
[2023-03-23] MEDS: VANCOMYCIN 1 GM in IV D5W 250ml IV SCH ×2 (09:20→21:00)
[2023-03-23] MEDS: RIFAXIMIN 550 MG TABLET PO SCH ×2 (09:20→18:21)
[2023-03-23] MEDS: CLOTRIMAZOLE 1% 15 GM TUBE TP SCH ×2 (09:21→18:22)
[2023-03-23] MEDS: PROSOURCE / PROSTAT (PYXIS) 30 ML UDC PO SCH ×3 (09:22→18:21)
[2023-03-23] MEDS: Z GUARD REMEDY 4 OZ OINT TP SCH (09:22)
[2023-03-23] MEDS: GLUCERNA SHAKE 237 ML CAN PO SCH (09:22)
[2023-03-23] MEDS: IV 1/2NS 1000 ML 1,000 ML IV SCH ×2 (10:13→17:30)
[2023-03-23 12:00] VITALS: BP 116/75; TEMP 97.9; O2SAT 97
[2023-03-23 16:00] VITALS: BP 90/61; TEMP 98.1; O2SAT 98
[2023-03-23 20:00] VITALS: BP 107/72; TEMP 98.9; O2SAT 100
[2023-03-24] VITALS: BP 136/76; TEMP 98; O2SAT 100
[2023-03-24] MEDS: BLOOD SUGAR DIAGNOSTIC 1 EACH STRIP IN SCH ×4 (00:17→17:44)
[2023-03-24] MEDS: INSULIN REGULAR, HUMAN 100 UNIT/ML 3 ML VIAL SQ PRN ×4 (00:19→17:45)
[2023-03-24] MEDS: IPRATROPIUM NEB FS 0.5 MG/2.5 ML AMPUL.NEB NEB SCH ×6 (03:30→23:30)
[2023-03-24] MEDS: ALBUTEROL HALF STRENGTH 1.25 MG/3 ML VIAL.NEB NEB SCH ×6 (03:30→23:30)
[2023-03-24 04:00] VITALS: BP 109/70; TEMP 98; O2SAT 100
[2023-03-24] MEDS: IV 1/2NS 1000 ML 1,000 ML IV SCH ×3 (04:00→23:58)
[2023-03-24] MEDS: PIPERACILLIN /TAZOBACTAM 2.25 G in IV D5W 50 ML IV SCH ×3 (04:02→22:04)
[2023-03-24 05:54] LABS: EOSINOPHILS % (AUTO) 0.3 % (0.0-6.0); HEMATOCRIT 34 % (39-51); HEMOGLOBIN 10.3 g/dL (13.5-17.5); LYMPHOCYTES # (AUTO) 1.6 K/uL (0.8-4.8); LYMPHOCYTES % (AUTO) 10.7 % (20.0-44.0); MEAN CORPUSCULAR HEMOGLOBIN 24 PG (26.0-33.0); MEAN CORPUSCULAR HGB CONC 30 g/dl (31.0-36.0); MEAN CORPUSCULAR VOLUME 78 fL (80-96); MONOCYTES % (AUTO) 6.4 % (2.0-12.0); NEUTROPHILS # (AUTO) 12.4 K/uL (1.8-8.9); NEUTROPHILS % (AUTO) 82.6 % (43.0-81.0); PLATELET COUNT (AUTO) 139 K/uL (150-450); RED BLOOD CELL COUNT(AUTO) 4.34 MIL/uL (4.5-6.0)
[2023-03-24 06:01] LABS: CALCIUM, SERUM 7.9 mg/dL (8.5-10.1); MAGNESIUM 1.8 mg/dL (1.8-2.4); PHOSPHORUS 2.5 mg/dL (2.5-4.9); POTASSIUM 3.9 mmol/L (3.5-5.1)
[2023-03-24 08:00] VITALS: BP 121/77; TEMP 97.6; O2SAT 92
[2023-03-24] MEDS: PROPRANOLOL HCL 10 MG TABLET PO SCH ×2 (08:58→21:16)
[2023-03-24] MEDS: QUETIAPINE FUMARATE 25 MG TABLET PO SCH ×2 (08:58→17:06)
[2023-03-24] MEDS: PROSOURCE / PROSTAT (PYXIS) 30 ML UDC PO SCH ×3 (08:58→17:05)
[2023-03-24] MEDS: RIFAXIMIN 550 MG TABLET PO SCH ×2 (08:58→17:05)
[2023-03-24] MEDS: GLUCERNA SHAKE 237 ML CAN PO SCH (08:59)
[2023-03-24] MEDS: CLOTRIMAZOLE 1% 15 GM TUBE TP SCH ×2 (08:59→17:06)
[2023-03-24] MEDS: Z GUARD REMEDY 4 OZ OINT TP SCH (09:00)
[2023-03-24] MEDS: VANCOMYCIN HCL 0.75 GM in IV D5W 250 ML IV SCH ×2 (10:00→20:20)
[2023-03-24 12:00] VITALS: BP 110/77; TEMP 97.6; O2SAT 94
[2023-03-24 16:00] VITALS: BP 113/71; TEMP 97.9; O2SAT 98
[2023-03-24] MEDS: LORAZEPAM INJ 2 MG/ML VIAL IV PRN (21:16)
[2023-03-24 22:00] VITALS: BP 135/73; TEMP 97.8; O2SAT 95
[2023-03-24] MEDS: OLANZAPINE 10 MG VIAL IM PRN (23:47)
[2023-03-25] VITALS: BP 135/73; TEMP 97.8; O2SAT 95
[2023-03-25] MEDS: BLOOD SUGAR DIAGNOSTIC 1 EACH STRIP IN SCH ×4 (00:23→17:37)
[2023-03-25] MEDS: INSULIN REGULAR, HUMAN 100 UNIT/ML 3 ML VIAL SQ PRN ×3 (00:46→11:36)
[2023-03-25] MEDS: IPRATROPIUM NEB FS 0.5 MG/2.5 ML AMPUL.NEB NEB SCH ×6 (03:30→23:30)
[2023-03-25] MEDS: ALBUTEROL HALF STRENGTH 1.25 MG/3 ML VIAL.NEB NEB SCH ×6 (03:30→23:30)
[2023-03-25 06:02] VITALS: BP 113/61; TEMP 98.5; O2SAT 96
[2023-03-25 06:59] LABS: BASOPHILS % (AUTO) 0.1 % (0.0-2.0); EOSINOPHILS # (AUTO) 0.1 K/uL (0.0-0.7); EOSINOPHILS % (AUTO) 0.3 % (0.0-6.0); HEMATOCRIT 28 % (39-51); HEMOGLOBIN 8.7 g/dL (13.5-17.5); LYMPHOCYTES # (AUTO) 1.1 K/uL (0.8-4.8); LYMPHOCYTES % (AUTO) 7.2 % (20.0-44.0); MEAN CORPUSCULAR HEMOGLOBIN 24 PG (26.0-33.0); MEAN CORPUSCULAR HGB CONC 31 g/dl (31.0-36.0); MEAN CORPUSCULAR VOLUME 77 fL (80-96); MONOCYTES % (AUTO) 6.5 % (2.0-12.0); NEUTROPHILS # (AUTO) 13.5 K/uL (1.8-8.9); NEUTROPHILS % (AUTO) 85.9 % (43.0-81.0); PLATELET COUNT (AUTO) 113 K/uL (150-450); RED BLOOD CELL COUNT(AUTO) 3.64 MIL/uL (4.5-6.0); RED CELL DISTRIBUTION WIDTH 22.2 % (11.5-15.0); WHITE BLOOD COUNT (AUTO) 15.7 K/uL (4.3-11.0)
[2023-03-25 07:33] LABS: ALBUMIN 1.7 g/dL (3.4-5.0); BILIRUBIN,TOTAL 2.3 mg/dL (0.2-1.0); CALCIUM, SERUM 7.7 mg/dL (8.5-10.1); CREATININE 1.1 mg/dL (0.6-1.3); MAGNESIUM 1.8 mg/dL (1.8-2.4); PHOSPHORUS 2.3 mg/dL (2.5-4.9); POTASSIUM 3.9 mmol/L (3.5-5.1); TOTAL PROTEIN, SERUM 5.4 g/dL (6.4-8.2)
[2023-03-25 08:00] VITALS: BP 105/60; TEMP 98.5; O2SAT 94
[2023-03-25] MEDS: QUETIAPINE FUMARATE 25 MG TABLET PO SCH ×2 (08:43→16:19)
[2023-03-25] MEDS: RIFAXIMIN 550 MG TABLET PO SCH ×2 (08:43→16:19)
[2023-03-25] MEDS: PROPRANOLOL HCL 10 MG TABLET PO SCH ×2 (08:46→20:10)
[2023-03-25] MEDS: CLOTRIMAZOLE 1% 15 GM TUBE TP SCH ×2 (08:48→16:09)
[2023-03-25] MEDS: Z GUARD REMEDY 4 OZ OINT TP SCH (08:48)
[2023-03-25] MEDS: PROSOURCE / PROSTAT (PYXIS) 30 ML UDC PO SCH ×3 (08:48→16:06)
[2023-03-25] MEDS: GLUCERNA SHAKE 237 ML CAN PO SCH (08:58)
[2023-03-25] MEDS: IV 1/2NS 1000 ML 1,000 ML IV SCH ×2 (09:00→20:02)
[2023-03-25] MEDS ORDERED: K PHOS NEUTRAL 250 MG TABLET PO ONE (11:00)
[2023-03-25 13:00] VITALS: BP 92/51; TEMP 98.5; O2SAT 94
[2023-03-25 16:00] VITALS: BP 98/52; TEMP 98.3; O2SAT 94
[2023-03-25 20:00] VITALS: BP_SYST 112; BP_SYST 115; BP_DIAS 45; BP_DIAS 65; TEMP 98; O2SAT 100; O2SAT 96
[2023-03-26] MEDS: LORAZEPAM INJ 2 MG/ML VIAL IV PRN (00:10)
[2023-03-26] MEDS: BLOOD SUGAR DIAGNOSTIC 1 EACH STRIP IN SCH ×4 (00:31→17:08)
[2023-03-26] MEDS: INSULIN REGULAR, HUMAN 100 UNIT/ML 3 ML VIAL SQ PRN ×4 (00:33→17:09)
[2023-03-26 03:17] VITALS: BP 120/60; TEMP 98; O2SAT 100
[2023-03-26 04:00] VITALS: BP 115/79; TEMP 98; O2SAT 100
[2023-03-26] MEDS: IV 1/2NS 1000 ML 1,000 ML IV SCH ×2 (05:01→15:38)
[2023-03-26 07:32] LABS: BASOPHILS % (AUTO) 0.1 % (0.0-2.0); EOSINOPHILS # (AUTO) 0.1 K/uL (0.0-0.7); EOSINOPHILS % (AUTO) 0.6 % (0.0-6.0); HEMATOCRIT 24 % (39-51); HEMOGLOBIN 7.5 g/dL (13.5-17.5); LYMPHOCYTES # (AUTO) 1.3 K/uL (0.8-4.8); MEAN CORPUSCULAR HEMOGLOBIN 24 PG (26.0-33.0); MEAN CORPUSCULAR HGB CONC 32 g/dl (31.0-36.0); MEAN CORPUSCULAR VOLUME 77 fL (80-96); MONOCYTES # (AUTO) 0.9 K/uL (0.1-1.30); MONOCYTES % (AUTO) 9.4 % (2.0-12.0); NEUTROPHILS # (AUTO) 7.7 K/uL (1.8-8.9); NEUTROPHILS % (AUTO) 76.9 % (43.0-81.0); PLATELET COUNT (AUTO) 108 K/uL (150-450); RED BLOOD CELL COUNT(AUTO) 3.09 MIL/uL (4.5-6.0); RED CELL DISTRIBUTION WIDTH 22.1 % (11.5-15.0)
[2023-03-26] MEDS: ALBUTEROL HALF STRENGTH 1.25 MG/3 ML VIAL.NEB NEB SCH ×5 (07:35→23:30)
[2023-03-26] MEDS: IPRATROPIUM NEB FS 0.5 MG/2.5 ML AMPUL.NEB NEB SCH ×5 (07:35→23:30)
[2023-03-26 07:57] LABS: CALCIUM, SERUM 7.8 mg/dL (8.5-10.1); CREATININE 0.9 mg/dL (0.6-1.3); MAGNESIUM 1.6 mg/dL (1.8-2.4); PHOSPHORUS 2.1 mg/dL (2.5-4.9)
[2023-03-26 08:00] VITALS: BP 109/48; TEMP 98.2; O2SAT 100
[2023-03-26] MEDS: Z GUARD REMEDY 4 OZ OINT TP SCH (08:03)
[2023-03-26] MEDS: CLOTRIMAZOLE 1% 15 GM TUBE TP SCH ×2 (08:03→16:20)
[2023-03-26] MEDS: GLUCERNA SHAKE 237 ML CAN PO SCH (09:48)
[2023-03-26] MEDS: RIFAXIMIN 550 MG TABLET PO SCH ×2 (09:56→17:00)
[2023-03-26] MEDS: QUETIAPINE FUMARATE 25 MG TABLET PO SCH ×2 (09:56→17:00)
[2023-03-26] MEDS: PROPRANOLOL HCL 10 MG TABLET PO SCH ×2 (09:57→20:41)
[2023-03-26] MEDS: PROSOURCE / PROSTAT (PYXIS) 30 ML UDC PO SCH ×3 (09:57→16:20)
[2023-03-26] MEDS ORDERED: K PHOS NEUTRAL 250 MG TABLET PO ONE (10:00)
[2023-03-26] MEDS ORDERED: MAGNESIUM OXIDE 400 MG TABLET PO ONE (11:00)
[2023-03-26 12:00] VITALS: BP 107/76; TEMP 97.3; O2SAT 99
[2023-03-26 16:00] VITALS: BP 108/64; TEMP 98.2; O2SAT 99
[2023-03-26 20:00] VITALS: BP 110/66; TEMP 98.6; O2SAT 97
[2023-03-27] VITALS: BP 116/74; TEMP 98.3; O2SAT 97
[2023-03-27] MEDS: INSULIN REGULAR, HUMAN 100 UNIT/ML 3 ML VIAL SQ PRN ×3 (01:32→12:20)
[2023-03-27] MEDS: IV 1/2NS 1000 ML 1,000 ML IV SCH (01:44)
[2023-03-27] MEDS: ALBUTEROL HALF STRENGTH 1.25 MG/3 ML VIAL.NEB NEB SCH ×4 (03:30→15:30)
[2023-03-27] MEDS: IPRATROPIUM NEB FS 0.5 MG/2.5 ML AMPUL.NEB NEB SCH ×4 (03:30→15:30)
[2023-03-27 04:00] VITALS: BP 110/73; TEMP 98.3; O2SAT 97
[2023-03-27 06:51] LABS: BASOPHILS % (AUTO) 0.2 % (0.0-2.0); EOSINOPHILS # (AUTO) 0.1 K/uL (0.0-0.7); EOSINOPHILS % (AUTO) 0.7 % (0.0-6.0); HEMATOCRIT 26 % (39-51); HEMOGLOBIN 8.1 g/dL (13.5-17.5); LYMPHOCYTES # (AUTO) 1.6 K/uL (0.8-4.8); MEAN CORPUSCULAR HEMOGLOBIN 24 PG (26.0-33.0); MEAN CORPUSCULAR HGB CONC 32 g/dl (31.0-36.0); MEAN CORPUSCULAR VOLUME 77 fL (80-96); MONOCYTES # (AUTO) 0.9 K/uL (0.1-1.30); MONOCYTES % (AUTO) 10.9 % (2.0-12.0); NEUTROPHILS # (AUTO) 6.1 K/uL (1.8-8.9); NEUTROPHILS % (AUTO) 70.2 % (43.0-81.0); PLATELET COUNT (AUTO) 121 K/uL (150-450); RED BLOOD CELL COUNT(AUTO) 3.32 MIL/uL (4.5-6.0); RED CELL DISTRIBUTION WIDTH 23.6 % (11.5-15.0); WHITE BLOOD COUNT (AUTO) 8.6 K/uL (4.3-11.0)
[2023-03-27] MEDS: BLOOD SUGAR DIAGNOSTIC 1 EACH STRIP IN SCH ×3 (06:52→12:19)
[2023-03-27 07:15] LABS: CALCIUM, SERUM 7.7 mg/dL (8.5-10.1); MAGNESIUM 1.6 mg/dL (1.8-2.4); PHOSPHORUS 2.2 mg/dL (2.5-4.9)
[2023-03-27] MEDS ORDERED: IV 1/2NS 1000 ML 1,000 ML IV PRN (07:51)
[2023-03-27 08:00] VITALS: BP 100/58; TEMP 98.3; O2SAT 97
[2023-03-27 08:04] LABS: ANISOCYTOSIS 1+; EOSINOPHILS % (MANUAL) 1 % (0-4); LYMPHOCYTES % (MANUAL) 21 % (16-48); MONOCYTES % (MANUAL) 4 % (0-11.0); NEUTROPHILS % (MANUAL) 74 (42-76); OVALOCYTES 1+; PLATELET ESTIMATE DECREASED
[2023-03-27] MEDS: GLUCERNA SHAKE 237 ML CAN PO SCH (08:23)
[2023-03-27] MEDS: CLOTRIMAZOLE 1% 15 GM TUBE TP SCH (08:23)
[2023-03-27] MEDS: QUETIAPINE FUMARATE 25 MG TABLET PO SCH (08:23)
[2023-03-27] MEDS: PROSOURCE / PROSTAT (PYXIS) 30 ML UDC PO SCH ×2 (08:23→13:03)
[2023-03-27] MEDS: RIFAXIMIN 550 MG TABLET PO SCH (08:23)
[2023-03-27] MEDS: PROPRANOLOL HCL 10 MG TABLET PO SCH (08:24)
[2023-03-27] MEDS: Z GUARD REMEDY 4 OZ OINT TP SCH (08:25)
[2023-03-27] MEDS ORDERED: QUET50TA PO (09:17)
[2023-03-27] MEDS ORDERED: PROP10TA68 PO (09:17)
[2023-03-27] MEDS ORDERED: RIFA550T PO (09:17)
[2023-03-27] MEDS ORDERED: NEUTRA PHOS 1 POWD.PACKET PO ONE (09:30)
[2023-03-27] MEDS: Magnesium 1GM/D5W 100ML PREMIX 100 ML IV SCH ×4 (09:44→12:23)
[2023-03-27 12:00] VITALS: BP 96/58; TEMP 98.3; O2SAT 97
== END 2023-03-27 16:12 | DRG 853 ==
LOC: ER 17:58 → ICU 20:35 → TELE1 03-16 11:17
PROVIDERS: ADMIT Nurse Practitioner Acute Care; ATTEND Nurse Practitioner Acute Care
PROC: 02HV33Z Insertion of Infusion Device into Superior Vena Cava, Percutaneous Approach (ICD-10-PCS; 2023-03-11)
PROC: B548ZZA Ultrasonography of Superior Vena Cava, Guidance (ICD-10-PCS; 2023-03-11)
PROC: 5A09357 Assistance with Respiratory Ventilation, Less than 24 Consecutive Hours, Continuous Positive Airway Pressure (ICD-10-PCS; principal; 2023-03-12)
PROC: 02HV33Z Insertion of Infusion Device into Superior Vena Cava, Percutaneous Approach (ICD-10-PCS; 2023-03-15)
PROC: B518YZA Fluoroscopy of Superior Vena Cava using Other Contrast, Guidance (ICD-10-PCS; 2023-03-15)
PROC: 5A1D70Z Performance of Urinary Filtration, Intermittent, Less than 6 Hours Per Day (ICD-10-PCS; 2023-03-15)
PROC: 0JH63XZ Insertion of Tunneled Vascular Access Device into Chest Subcutaneous Tissue and Fascia, Percutaneous Approach (ICD-10-PCS; 2023-03-18)
PROC: 02HV33Z Insertion of Infusion Device into Superior Vena Cava, Percutaneous Approach (ICD-10-PCS; 2023-03-18)
PROC: B518YZA Fluoroscopy of Superior Vena Cava using Other Contrast, Guidance (ICD-10-PCS; 2023-03-18)
PROC: 0YQ Anatomical Regions, Lower Extremities, Repair (ICD-10-PCS; 2023-03-22)
PROC: 05H533Z Insertion of Infusion Device into Right Subclavian Vein, Percutaneous Approach (ICD-10-PCS; 2023-03-22)
PROC: B546ZZA Ultrasonography of Right Subclavian Vein, Guidance (ICD-10-PCS; 2023-03-22)
DX: A40.9 Streptococcal sepsis, unspecified (principal); G92.8 Other toxic encephalopathy; J96.01 Acute respiratory failure with hypoxia; I50.33 Acute on chronic diastolic (congestive) heart failure; J15.69 Pneumonia due to other Gram-negative bacteria; I21.A1 Myocardial infarction type 2; U07.1 COVID-19; N17.0 Acute kidney failure with tubular necrosis; E44.0 Moderate protein-calorie malnutrition; I13.0 Hypertensive heart and chronic kidney disease with heart failure and stage 1 through stage 4 chronic kidney disease, or unspecified chronic kidney disease; D68.69 Other thrombophilia; E87.20 Acidosis, unspecified; I48.92 Unspecified atrial flutter; E87.1 Hypo-osmolality and hyponatremia; N18.9 Chronic kidney disease, unspecified; K72.90 Hepatic failure, unspecified without coma; R74.01 Elevation of levels of liver transaminase levels; E88.09 Other disorders of plasma-protein metabolism, not elsewhere classified; D50.9 Iron deficiency anemia, unspecified; E11.22 Type 2 diabetes mellitus with diabetic chronic kidney disease; E11.42 Type 2 diabetes mellitus with diabetic polyneuropathy; E11.51 Type 2 diabetes mellitus with diabetic peripheral angiopathy without gangrene; E11.65 Type 2 diabetes mellitus with hyperglycemia; E66.01 Morbid (severe) obesity due to excess calories; E83.42 Hypomagnesemia; I25.10 Atherosclerotic heart disease of native coronary artery without angina pectoris; I48.91 Unspecified atrial fibrillation; Z79.01 Long term (current) use of anticoagulants; Z89.431 Acquired absence of right foot; Z79.84 Long term (current) use of oral hypoglycemic drugs; E87.6 Hypokalemia; F15.10 Other stimulant abuse, uncomplicated; E80.6 Other disorders of bilirubin metabolism; E11.621 Type 2 diabetes mellitus with foot ulcer; L97.529 Non-pressure chronic ulcer of other part of left foot with unspecified severity; Z89.421 Acquired absence of other right toe(s); S91.114A Laceration without foreign body of right lesser toe(s) without damage to nail, initial encounter; X58.XXXA Exposure to other specified factors, initial encounter; Y93.9 Activity, unspecified; Y92.89 Other specified places as the place of occurrence of the external cause; K76.82 Hepatic encephalopathy; F39 Unspecified mood [affective] disorder; F29 Unspecified psychosis not due to a substance or known physiological condition
CPT/HCPCS: 36410; 36415; 36569; 36600; 70450-TC; 71045-TC; 76705-TC; 76770-TC; 80048-TC; 80053-TC; 80061-TC; 80076-TC; 80202-TC; 81001; 82140-TC; 82533; 82803-TC; 82962-TC; 83735-TC; 83880; 84100-TC; 84443-TC; 84484-TC; 85025-TC; 85730-TC; 86704; 86705; 86706; 86709; 86803; 87040-TC; 87186-TC; 87340; 90935-TC; 93307-TC; 93970-TC; 94799-TC; A4223; A6403; C1750; G0378; G0480; J0690; J1160; J1644; J1720; J1815; J1940; J2060; J2310; J2543; J2704; J2920; J2997; J3010; J3370; J3475; J3480; J3490; J7030; J7040; J7050; J7060; Q9967

== ENCOUNTER 2023-03-29 16:26 | Inpatient (IN) | payer MEDICARE, OTHER ==
[~2023-03-29] VITALS: Ht 177.8 cm; Wt 116.4 kg
[~2023-03-29 16:26] MED LIST changes: +ATOR40TA PO; +BUME2TAB7 PO; +DAPA10TA PO; +FAMO-131 PO; -FURO80TA3 PO; +LINA5TAB PO; +LISI-768 PO; +METF-442 PO; +POTA20TA83 PO; +PROP10TA68 PO; +QUET50TA PO; +RIFA550T PO; +RIVA10TA PO
[2023-03-29 17:12] LABS: BASOPHILS % (AUTO) 0.2 % (0.0-2.0); EOSINOPHILS # (AUTO) 0.1 K/uL (0.0-0.7); HEMATOCRIT 25 % (39-51); HEMOGLOBIN 7.9 g/dL (13.5-17.5); LYMPHOCYTES # (AUTO) 1.3 K/uL (0.8-4.8); LYMPHOCYTES % (AUTO) 19.5 % (20.0-44.0); MEAN CORPUSCULAR HEMOGLOBIN 24 PG (26.0-33.0); MEAN CORPUSCULAR HGB CONC 31 g/dl (31.0-36.0); MEAN CORPUSCULAR VOLUME 77 fL (80-96); MONOCYTES # (AUTO) 0.5 K/uL (0.1-1.30); NEUTROPHILS # (AUTO) 4.9 K/uL (1.8-8.9); NEUTROPHILS % (AUTO) 72.3 % (43.0-81.0); PLATELET COUNT (AUTO) 108 K/uL (150-450); RED BLOOD CELL COUNT(AUTO) 3.26 MIL/uL (4.5-6.0); RED CELL DISTRIBUTION WIDTH 25.1 % (11.5-15.0); WHITE BLOOD COUNT (AUTO) 6.8 K/uL (4.3-11.0)
[2023-03-29] MEDS ORDERED: XEROFORM TD (17:31)
[2023-03-29] MEDS ORDERED: RIFA550T PO (17:31)
[2023-03-29] MEDS ORDERED: PROP20TA7 PO (17:31)
[2023-03-29] MEDS ORDERED: QUET50TA PO (17:31)
[2023-03-29] MEDS ORDERED: POVI3780 TP (17:31)
[2023-03-29 17:33] LABS: CALCIUM, SERUM 7.6 mg/dL (8.5-10.1); CREATININE 1.3 mg/dL (0.6-1.3); POTASSIUM 3.4 mmol/L (3.5-5.1)
[2023-03-29 17:38] LABS: ALBUMIN 1.7 g/dL (3.4-5.0); BILIRUBIN,DIRECT 0.6 mg/dL (0.0-0.2); BILIRUBIN,TOTAL 1.3 mg/dL (0.2-1.0); TOTAL PROTEIN, SERUM 6.1 g/dL (6.4-8.2)
[2023-03-29] MEDS ORDERED: MAG HYDROX/AL HYDROX/SIMETH 30 ML UDC PO PRN (18:30)
[2023-03-29] MEDS ORDERED: Z GUARD REMEDY 4 OZ OINT TP PRN (18:30)
[2023-03-29] MEDS ORDERED: ONDANSETRON HCL/PF 4 MG/2 ML VIAL IVP PRN (18:30)
[2023-03-29] MEDS ORDERED: ACETAMINOPHEN 325 MG TABLET PO PRN (18:30)
[2023-03-29] MEDS ORDERED: MAGNESIUM HYDROXIDE 30 ML UDC PO PRN (18:30)
[2023-03-29 18:46] LABS: APPEARANCE,URINE SLIGHTLY CLOUDY (CLEAR); BILIRUBIN,URINE NEGATIVE (NEGATIVE); BLOOD, URINE 2+ Ery/uL (NEGATIVE); COLOR,URINE YELLOW (YELLOW); KETONES,URINE NEGATIVE (NEGATIVE); LEUKOCYTE ESTERASE ,URINE NEGATIVE (NEGATIVE); NITRITE, URINE POSITIVE (NEGATIVE); PROTEIN,URINE NEGATIVE (NEGATIVE); UGLUCOSE 3+ mg/dL (NEGATIVE); UROBILINOGEN,URINE 0.2 EU/dL (0.2)
[2023-03-29 18:51] LABS: INR 1.3 (0.91-1.10); PARTIAL THROMBOPLASTIN TIME 37.5 SEC (24.3-34.3); PROTHROMBIN TIME 13.5 SECS (9.2-11.1)
[2023-03-29 18:58] LABS: ADD URINE CULTURE YES; BACTERIA,URINE Few /HPF (None Seen); RBC,URINE TOO NUMEROUS TO COUN /HPF (0-2); SQUAMOUS EPITHELIAL CELL,UR Few /HPF (None Seen); WBC,URINE 0-2 /HPF (0-3)
[2023-03-29] MEDS: CEFTRIAXONE 1 G in IV D5W 50 ML IV SCH (21:16)
[2023-03-29] MEDS ORDERED: DEXTROSE 50%-WATER 50 ML DISP.SYRIN IV PRN (22:00)
[2023-03-29] MEDS: BUMETANIDE (1 MG) 1 MG TABLET PO SCH (22:15)
[2023-03-29] MEDS: PROPRANOLOL HCL 10 MG TABLET PO SCH (22:16)
[2023-03-29] MEDS: BLOOD SUGAR DIAGNOSTIC 1 EACH STRIP IN SCH (22:32)
[2023-03-29] MEDS: INSULIN REGULAR, HUMAN 100 UNIT/ML 3 ML VIAL SQ PRN (22:36)
[2023-03-29] MEDS ORDERED: ZOLPIDEM TARTRATE 5 MG TABLET PO PRN (23:00)
[2023-03-30] MEDS: HYDROCODONE/APAP 5/325MG TABLET PO PRN (01:19)
[2023-03-30] MEDS: BLOOD SUGAR DIAGNOSTIC 1 EACH STRIP IN SCH ×4 (06:47→21:45)
[2023-03-30] MEDS: INSULIN REGULAR, HUMAN 100 UNIT/ML 3 ML VIAL SQ PRN ×4 (06:50→22:04)
[2023-03-30 07:00] VITALS: BP 88/58; TEMP 97.5; O2SAT 100
[2023-03-30 07:00] LABS: BASOPHILS % (AUTO) 0.5 % (0.0-2.0); EOSINOPHILS # (AUTO) 0.1 K/uL (0.0-0.7); EOSINOPHILS % (AUTO) 0.8 % (0.0-6.0); HEMATOCRIT 23 % (39-51); HEMOGLOBIN 7.2 g/dL (13.5-17.5); LYMPHOCYTES # (AUTO) 1.7 K/uL (0.8-4.8); MEAN CORPUSCULAR HEMOGLOBIN 24 PG (26.0-33.0); MEAN CORPUSCULAR HGB CONC 31 g/dl (31.0-36.0); MEAN CORPUSCULAR VOLUME 77 fL (80-96); MONOCYTES # (AUTO) 0.6 K/uL (0.1-1.30); MONOCYTES % (AUTO) 7.5 % (2.0-12.0); NEUTROPHILS # (AUTO) 5.2 K/uL (1.8-8.9); NEUTROPHILS % (AUTO) 69.2 % (43.0-81.0); PLATELET COUNT (AUTO) 107 K/uL (150-450); RED BLOOD CELL COUNT(AUTO) 2.98 MIL/uL (4.5-6.0); RED CELL DISTRIBUTION WIDTH 25.5 % (11.5-15.0); WHITE BLOOD COUNT (AUTO) 7.5 K/uL (4.3-11.0)
[2023-03-30 07:08] LABS: CALCIUM, SERUM 7.1 mg/dL (8.5-10.1); CREATININE 1.2 mg/dL (0.6-1.3); MAGNESIUM 1.4 mg/dL (1.8-2.4); PHOSPHORUS 3.4 mg/dL (2.5-4.9); POTASSIUM 3.7 mmol/L (3.5-5.1)
[2023-03-30] MEDS: FAMOTIDINE (20 MG) 20 MG TABLET PO SCH (08:17)
[2023-03-30] MEDS: POTASSIUM CHLORIDE 20 MEQ TAB.PRT.SR PO SCH (08:17)
[2023-03-30] MEDS: QUETIAPINE FUMARATE 25 MG TABLET PO SCH ×2 (08:17→16:28)
[2023-03-30] MEDS: RIFAXIMIN 550 MG TABLET PO SCH ×2 (08:17→16:28)
[2023-03-30] MEDS: PROPRANOLOL HCL 10 MG TABLET PO SCH ×2 (09:00→21:00)
[2023-03-30] MEDS: LISINOPRIL (5MG) 5 MG TABLET PO SCH (09:00)
[2023-03-30] MEDS: BUMETANIDE (1 MG) 1 MG TABLET PO SCH ×2 (09:00→21:00)
[2023-03-30] MEDS ORDERED: MAGNESIUM OXIDE 400 MG TABLET PO ONE ×2 (09:30→11:00)
[2023-03-30 16:00] VITALS: BP 91/59; TEMP 97.4; O2SAT 96
[2023-03-30 20:00] VITALS: BP 96/62; TEMP 97.3; O2SAT 94
[2023-03-30] MEDS: CEFTRIAXONE 1 G in IV D5W 50 ML IV SCH (20:02)
[2023-03-30 23:00] VITALS: BP 100/63; TEMP 98; O2SAT 98
[2023-03-31] MEDS: BLOOD SUGAR DIAGNOSTIC 1 EACH STRIP IN SCH ×4 (06:34→22:05)
[2023-03-31] MEDS: INSULIN REGULAR, HUMAN 100 UNIT/ML 3 ML VIAL SQ PRN ×3 (06:53→22:09)
[2023-03-31 06:55] LABS: BASOPHILS % (AUTO) 0.6 % (0.0-2.0); EOSINOPHILS # (AUTO) 0.1 K/uL (0.0-0.7); EOSINOPHILS % (AUTO) 1.5 % (0.0-6.0); HEMATOCRIT 25 % (39-51); HEMOGLOBIN 7.9 g/dL (13.5-17.5); MEAN CORPUSCULAR HEMOGLOBIN 25 PG (26.0-33.0); MEAN CORPUSCULAR HGB CONC 32 g/dl (31.0-36.0); MEAN CORPUSCULAR VOLUME 78 fL (80-96); MONOCYTES # (AUTO) 0.5 K/uL (0.1-1.30); MONOCYTES % (AUTO) 6.3 % (2.0-12.0); NEUTROPHILS # (AUTO) 5.3 K/uL (1.8-8.9); NEUTROPHILS % (AUTO) 66.6 % (43.0-81.0); PLATELET COUNT (AUTO) 117 K/uL (150-450); RED CELL DISTRIBUTION WIDTH 25.2 % (11.5-15.0)
[2023-03-31 07:27] LABS: MAGNESIUM 1.8 mg/dL (1.8-2.4); PHOSPHORUS 3.1 mg/dL (2.5-4.9)
[2023-03-31 07:34] LABS: THYROID STIMULATING HORMONE 6.379 uIU/mL (0.358-3.74); URIC ACID 4.9 mg/dL (2.6-7.2)
[2023-03-31 08:47] VITALS: BP 97/60; TEMP 97.8; O2SAT 95
[2023-03-31] MEDS: RIFAXIMIN 550 MG TABLET PO SCH ×2 (09:06→16:39)
[2023-03-31] MEDS: QUETIAPINE FUMARATE 25 MG TABLET PO SCH ×2 (09:06→16:40)
[2023-03-31] MEDS: FAMOTIDINE (20 MG) 20 MG TABLET PO SCH (09:07)
[2023-03-31] MEDS: POTASSIUM CHLORIDE 20 MEQ TAB.PRT.SR PO SCH (09:08)
[2023-03-31] MEDS: BUMETANIDE (1 MG) 1 MG TABLET PO SCH ×2 (09:08→21:00)
[2023-03-31] MEDS ORDERED: CEPH500C2 PO (09:10)
[2023-03-31] MEDS: LISINOPRIL (5MG) 5 MG TABLET PO SCH (09:14)
[2023-03-31] MEDS: PROPRANOLOL HCL 10 MG TABLET PO SCH ×2 (09:14→21:00)
[2023-03-31] MEDS: ENOXAPARIN SODIUM 120 MG/0.8 ML DISP.SYRIN SQ SCH ×2 (11:58→22:07)
[2023-03-31 16:03] VITALS: BP 92/60; TEMP 97.6; O2SAT 100
[2023-03-31 20:00] VITALS: BP 95/61; TEMP 97.5; O2SAT 93
[2023-03-31] MEDS: CEFTRIAXONE 1 G in IV D5W 50 ML IV SCH (20:27)
[2023-03-31] MEDS: HYDROCODONE/APAP 5/325MG TABLET PO PRN (23:21)
[2023-04-01] MEDS: BLOOD SUGAR DIAGNOSTIC 1 EACH STRIP IN SCH ×4 (06:45→21:45)
[2023-04-01] MEDS: INSULIN REGULAR, HUMAN 100 UNIT/ML 3 ML VIAL SQ PRN ×4 (06:47→21:47)
[2023-04-01 07:02] LABS: BASOPHILS # (AUTO) 0.1 K/uL (0.0-0.2); BASOPHILS % (AUTO) 0.7 % (0.0-2.0); EOSINOPHILS # (AUTO) 0.2 K/uL (0.0-0.7); EOSINOPHILS % (AUTO) 2.1 % (0.0-6.0); HEMATOCRIT 26 % (39-51); HEMOGLOBIN 7.9 g/dL (13.5-17.5); LYMPHOCYTES # (AUTO) 1.5 K/uL (0.8-4.8); LYMPHOCYTES % (AUTO) 20.2 % (20.0-44.0); MEAN CORPUSCULAR HEMOGLOBIN 25 PG (26.0-33.0); MEAN CORPUSCULAR HGB CONC 31 g/dl (31.0-36.0); MEAN CORPUSCULAR VOLUME 80 fL (80-96); MONOCYTES # (AUTO) 0.7 K/uL (0.1-1.30); MONOCYTES % (AUTO) 8.8 % (2.0-12.0); NEUTROPHILS # (AUTO) 5.2 K/uL (1.8-8.9); NEUTROPHILS % (AUTO) 68.2 % (43.0-81.0); PLATELET COUNT (AUTO) 96 K/uL (150-450); RED BLOOD CELL COUNT(AUTO) 3.18 MIL/uL (4.5-6.0); RED CELL DISTRIBUTION WIDTH 24.8 % (11.5-15.0); WHITE BLOOD COUNT (AUTO) 7.6 K/uL (4.3-11.0)
[2023-04-01 07:26] LABS: BILIRUBIN,TOTAL 0.9 mg/dL (0.2-1.0); CALCIUM, SERUM 7.5 mg/dL (8.5-10.1); CREATININE 1.7 mg/dL (0.6-1.3); MAGNESIUM 1.8 mg/dL (1.8-2.4); PHOSPHORUS 4.1 mg/dL (2.5-4.9); POTASSIUM 4.4 mmol/L (3.5-5.1)
[2023-04-01 07:38] LABS: TOTAL PROTEIN, SERUM 5.6 g/dL (6.4-8.2)
[2023-04-01 07:47] LABS: ALBUMIN 1.4 g/dL (3.4-5.0)
[2023-04-01] MEDS: RIFAXIMIN 550 MG TABLET PO SCH ×2 (08:50→16:27)
[2023-04-01] MEDS: FAMOTIDINE (20 MG) 20 MG TABLET PO SCH (08:50)
[2023-04-01] MEDS: POTASSIUM CHLORIDE 20 MEQ TAB.PRT.SR PO SCH (08:51)
[2023-04-01] MEDS: QUETIAPINE FUMARATE 25 MG TABLET PO SCH ×2 (08:51→16:27)
[2023-04-01] MEDS: BUMETANIDE (1 MG) 1 MG TABLET PO SCH (09:00)
[2023-04-01] MEDS: PROPRANOLOL HCL 10 MG TABLET PO SCH ×2 (09:00→21:00)
[2023-04-01] MEDS: LISINOPRIL (5MG) 5 MG TABLET PO SCH (09:00)
[2023-04-01] MEDS: ENOXAPARIN SODIUM 120 MG/0.8 ML DISP.SYRIN SQ SCH ×2 (10:39→21:51)
[2023-04-01 12:18] LABS: ANISOCYTOSIS 1+; BASOPHILS % (MANUAL) 0 % (0.0-2.0); EOSINOPHILS % (MANUAL) 2 % (0-4); LYMPHOCYTES % (MANUAL) 16 % (16-48); MONOCYTES % (MANUAL) 8 % (0-11.0); NEUTROPHILS % (MANUAL) 74 (42-76); PLATELET ESTIMATE DECREASED
[2023-04-01 15:08] LABS: CALCIUM, SERUM 7.6 mg/dL (8.5-10.1); CREATININE 1.7 mg/dL (0.6-1.3); POTASSIUM 4.6 mmol/L (3.5-5.1)
[2023-04-01 16:00] VITALS: BP 96/54; TEMP 99; O2SAT 96
[2023-04-01 16:42] LABS: APPEARANCE,URINE CLEAR (CLEAR); BILIRUBIN,URINE NEGATIVE (NEGATIVE); BLOOD, URINE 2+ Ery/uL (NEGATIVE); COLOR,URINE YELLOW (YELLOW); CREATININE, URINE 137.2 MG/DL (30.0-125.0); KETONES,URINE NEGATIVE (NEGATIVE); LEUKOCYTE ESTERASE ,URINE TRACE (NEGATIVE); NITRITE, URINE NEGATIVE (NEGATIVE); PH,URINE 5.5 (5.0-8.0); PROTEIN,URINE TRACE mg/dl (NEGATIVE); UGLUCOSE NEGATIVE (NEGATIVE); URINE SODIUM, RANDOM < 5 mmol/l (40-220); URINE TOTAL PROTEIN 34.3 mg/dL (0-11.9); UROBILINOGEN,URINE 0.2 EU/dL (0.2)
[2023-04-01 17:23] LABS: ADD URINE CULTURE NO; BACTERIA,URINE 1+ /HPF (None Seen); MUCUS,URINE Moderate /LPF (None Seen)
[2023-04-01 17:48] LABS: EOSINOPHIL,URINE None Seen
[2023-04-01] MEDS: CEFTRIAXONE 1 G in IV D5W 50 ML IV SCH (19:33)
[2023-04-01 20:00] VITALS: BP 94/60; TEMP 98.1; O2SAT 95
[2023-04-01 20:58] VITALS: BP 94/60; TEMP 98.1; O2SAT 95
[2023-04-01] MEDS: HYDROCODONE/APAP 5/325MG TABLET PO PRN (22:22)
[2023-04-02] MEDS: BLOOD SUGAR DIAGNOSTIC 1 EACH STRIP IN SCH ×4 (06:32→22:15)
[2023-04-02] MEDS: INSULIN REGULAR, HUMAN 100 UNIT/ML 3 ML VIAL SQ PRN ×4 (06:36→22:16)
[2023-04-02 07:00] VITALS: BP 99/64; TEMP 98.6; O2SAT 98
[2023-04-02] MEDS: RIFAXIMIN 550 MG TABLET PO SCH ×2 (08:11→16:35)
[2023-04-02] MEDS: QUETIAPINE FUMARATE 25 MG TABLET PO SCH ×2 (08:11→16:35)
[2023-04-02] MEDS: FAMOTIDINE (20 MG) 20 MG TABLET PO SCH (08:12)
[2023-04-02] MEDS: PROPRANOLOL HCL 10 MG TABLET PO SCH ×3 (08:16→21:00)
[2023-04-02] MEDS: ENOXAPARIN SODIUM 120 MG/0.8 ML DISP.SYRIN SQ SCH (09:59)
[2023-04-02] MEDS: IV NS 0.9% 1,000 ML IV PRN ×2 (10:05→18:55)
[2023-04-02 10:36] LABS: BASOPHILS % (AUTO) 0.8 % (0.0-2.0); EOSINOPHILS # (AUTO) 0.1 K/uL (0.0-0.7); EOSINOPHILS % (AUTO) 2.6 % (0.0-6.0); HEMATOCRIT 24 % (39-51); HEMOGLOBIN 7.6 g/dL (13.5-17.5); LYMPHOCYTES # (AUTO) 0.8 K/uL (0.8-4.8); LYMPHOCYTES % (AUTO) 13.8 % (20.0-44.0); MEAN CORPUSCULAR HEMOGLOBIN 24 PG (26.0-33.0); MEAN CORPUSCULAR HGB CONC 32 g/dl (31.0-36.0); MEAN CORPUSCULAR VOLUME 76 fL (80-96); MONOCYTES # (AUTO) 0.5 K/uL (0.1-1.30); MONOCYTES % (AUTO) 9.5 % (2.0-12.0); NEUTROPHILS # (AUTO) 4.1 K/uL (1.8-8.9); NEUTROPHILS % (AUTO) 73.3 % (43.0-81.0); PLATELET COUNT (AUTO) 110 K/uL (150-450); RED BLOOD CELL COUNT(AUTO) 3.14 MIL/uL (4.5-6.0); RED CELL DISTRIBUTION WIDTH 24.1 % (11.5-15.0); WHITE BLOOD COUNT (AUTO) 5.6 K/uL (4.3-11.0)
[2023-04-02 10:38] LABS: CALCIUM, SERUM 7.7 mg/dL (8.5-10.1); CREATININE 1.3 mg/dL (0.6-1.3); POTASSIUM 4.5 mmol/L (3.5-5.1)
[2023-04-02 10:39] LABS: ALBUMIN 1.5 g/dL (3.4-5.0); MAGNESIUM 1.7 mg/dL (1.8-2.4); PHOSPHORUS 3.3 mg/dL (2.5-4.9); TOTAL PROTEIN, SERUM 6.1 g/dL (6.4-8.2)
[2023-04-02 16:00] VITALS: BP 98/68; TEMP 98.4; O2SAT 96
[2023-04-02 20:00] VITALS: BP 105/61; TEMP 97.9; O2SAT 93
[2023-04-02] MEDS: CEFTRIAXONE 1 G in IV D5W 50 ML IV SCH (20:51)
[2023-04-02] MEDS: ENOXAPARIN SODIUM 100 MG/ML DISP.SYRIN SQ SCH (20:54)
[2023-04-03] MEDS: IV NS 0.9% 1,000 ML IV PRN (05:17)
[2023-04-03 06:22] LABS: BASOPHILS % (AUTO) 0.6 % (0.0-2.0); EOSINOPHILS # (AUTO) 0.1 K/uL (0.0-0.7); EOSINOPHILS % (AUTO) 1.6 % (0.0-6.0); HEMATOCRIT 23 % (39-51); HEMOGLOBIN 7.2 g/dL (13.5-17.5); LYMPHOCYTES # (AUTO) 1.3 K/uL (0.8-4.8); MEAN CORPUSCULAR HEMOGLOBIN 24 PG (26.0-33.0); MEAN CORPUSCULAR HGB CONC 31 g/dl (31.0-36.0); MEAN CORPUSCULAR VOLUME 77 fL (80-96); MONOCYTES # (AUTO) 0.7 K/uL (0.1-1.30); MONOCYTES % (AUTO) 13.4 % (2.0-12.0); NEUTROPHILS # (AUTO) 3.2 K/uL (1.8-8.9); NEUTROPHILS % (AUTO) 60.4 % (43.0-81.0); PLATELET COUNT (AUTO) 108 K/uL (150-450); RED BLOOD CELL COUNT(AUTO) 2.98 MIL/uL (4.5-6.0); RED CELL DISTRIBUTION WIDTH 23.5 % (11.5-15.0); WHITE BLOOD COUNT (AUTO) 5.2 K/uL (4.3-11.0)
[2023-04-03] MEDS: BLOOD SUGAR DIAGNOSTIC 1 EACH STRIP IN SCH ×4 (06:47→21:30)
[2023-04-03] MEDS: INSULIN REGULAR, HUMAN 100 UNIT/ML 3 ML VIAL SQ PRN ×4 (06:59→21:35)
[2023-04-03 08:33] LABS: CALCIUM, SERUM 7.7 mg/dL (8.5-10.1); CREATININE 1.1 mg/dL (0.6-1.3)
[2023-04-03 08:44] VITALS: BP 103/65; TEMP 98.4; O2SAT 94
[2023-04-03] MEDS: PROPRANOLOL HCL 10 MG TABLET PO SCH ×3 (09:00→21:16)
[2023-04-03] MEDS: ENOXAPARIN SODIUM 100 MG/ML DISP.SYRIN SQ SCH ×2 (09:00→21:00)
[2023-04-03] MEDS: HYDROCODONE/APAP 5/325MG TABLET PO PRN ×2 (09:35→17:16)
[2023-04-03] MEDS: FAMOTIDINE (20 MG) 20 MG TABLET PO SCH (09:38)
[2023-04-03] MEDS: QUETIAPINE FUMARATE 25 MG TABLET PO SCH ×2 (09:38→17:19)
[2023-04-03] MEDS: RIFAXIMIN 550 MG TABLET PO SCH ×2 (09:38→17:19)
[2023-04-03] MEDS: CEFTRIAXONE 1 G in IV D5W 50 ML IV SCH (19:55)
[2023-04-03 20:00] VITALS: BP 107/71; TEMP 98.8; O2SAT 96
[2023-04-04] MEDS: IV NS 0.9% 1,000 ML IV PRN (00:16)
[2023-04-04] MEDS: BLOOD SUGAR DIAGNOSTIC 1 EACH STRIP IN SCH ×4 (06:30→21:45)
[2023-04-04] MEDS: INSULIN REGULAR, HUMAN 100 UNIT/ML 3 ML VIAL SQ PRN ×4 (06:55→22:29)
[2023-04-04 08:00] VITALS: BP 120/74; TEMP 98.2; O2SAT 96
[2023-04-04 08:30] LABS: BASOPHILS % (AUTO) 0.1 % (0.0-2.0); EOSINOPHILS % (AUTO) 0.1 % (0.0-6.0); HEMATOCRIT 26 % (39-51); HEMOGLOBIN 7.9 g/dL (13.5-17.5); LYMPHOCYTES # (AUTO) 0.9 K/uL (0.8-4.8); MEAN CORPUSCULAR HEMOGLOBIN 24 PG (26.0-33.0); MEAN CORPUSCULAR HGB CONC 30 g/dl (31.0-36.0); MEAN CORPUSCULAR VOLUME 79 fL (80-96); MONOCYTES # (AUTO) 0.3 K/uL (0.1-1.30); NEUTROPHILS # (AUTO) 3.1 K/uL (1.8-8.9); NEUTROPHILS % (AUTO) 72.8 % (43.0-81.0); PLATELET COUNT (AUTO) 103 K/uL (150-450); RED BLOOD CELL COUNT(AUTO) 3.31 MIL/uL (4.5-6.0); RED CELL DISTRIBUTION WIDTH 24.8 % (11.5-15.0); WHITE BLOOD COUNT (AUTO) 4.3 K/uL (4.3-11.0)
[2023-04-04] MEDS: HYDROCODONE/APAP 5/325MG TABLET PO PRN ×2 (08:32→17:28)
[2023-04-04] MEDS: RIFAXIMIN 550 MG TABLET PO SCH ×3 (08:34→17:28)
[2023-04-04] MEDS: FAMOTIDINE (20 MG) 20 MG TABLET PO SCH (08:34)
[2023-04-04] MEDS: QUETIAPINE FUMARATE 25 MG TABLET PO SCH ×3 (08:34→17:00)
[2023-04-04 08:56] LABS: CALCIUM, SERUM 7.7 mg/dL (8.5-10.1); PHOSPHORUS 3.3 mg/dL (2.5-4.9); POTASSIUM 4.1 mmol/L (3.5-5.1)
[2023-04-04] MEDS: ENOXAPARIN SODIUM 100 MG/ML DISP.SYRIN SQ SCH ×2 (09:00→21:00)
[2023-04-04] MEDS: PROPRANOLOL HCL 10 MG TABLET PO SCH ×2 (09:00→21:00)
[2023-04-04 16:01] VITALS: BP 123/62; TEMP 97.9; O2SAT 98
[2023-04-04] MEDS: BUMETANIDE (1 MG) 1 MG TABLET PO SCH ×2 (17:27→21:00)
[2023-04-04 20:00] VITALS: BP 128/76; TEMP 97.9; O2SAT 96
[2023-04-04] MEDS: CEFTRIAXONE 1 G in IV D5W 50 ML IV SCH (20:34)
[2023-04-04 20:36] LABS: URINE SODIUM, RANDOM 6 mmol/l (40-220)
[2023-04-05] MEDS: INSULIN REGULAR, HUMAN 100 UNIT/ML 3 ML VIAL SQ PRN ×2 (05:55→11:23)
[2023-04-05] MEDS: BLOOD SUGAR DIAGNOSTIC 1 EACH STRIP IN SCH ×2 (06:13→11:22)
[2023-04-05 06:24] LABS: BASOPHILS % (AUTO) 0.3 % (0.0-2.0); EOSINOPHILS # (AUTO) 0.1 K/uL (0.0-0.7); EOSINOPHILS % (AUTO) 1.9 % (0.0-6.0); HEMATOCRIT 26 % (39-51); HEMOGLOBIN 7.9 g/dL (13.5-17.5); LYMPHOCYTES # (AUTO) 1.5 K/uL (0.8-4.8); MEAN CORPUSCULAR HEMOGLOBIN 24 PG (26.0-33.0); MEAN CORPUSCULAR HGB CONC 31 g/dl (31.0-36.0); MEAN CORPUSCULAR VOLUME 77 fL (80-96); MONOCYTES # (AUTO) 0.6 K/uL (0.1-1.30); MONOCYTES % (AUTO) 9.3 % (2.0-12.0); NEUTROPHILS % (AUTO) 64.5 % (43.0-81.0); PLATELET COUNT (AUTO) 149 K/uL (150-450); RED BLOOD CELL COUNT(AUTO) 3.34 MIL/uL (4.5-6.0); RED CELL DISTRIBUTION WIDTH 24.6 % (11.5-15.0); WHITE BLOOD COUNT (AUTO) 6.1 K/uL (4.3-11.0)
[2023-04-05 07:05] LABS: ALBUMIN 1.7 g/dL (3.4-5.0); BILIRUBIN,TOTAL 0.7 mg/dL (0.2-1.0); CALCIUM, SERUM 7.8 mg/dL (8.5-10.1); CREATININE 0.9 mg/dL (0.6-1.3); MAGNESIUM 1.6 mg/dL (1.8-2.4); PHOSPHORUS 2.9 mg/dL (2.5-4.9); POTASSIUM 3.6 mmol/L (3.5-5.1); TOTAL PROTEIN, SERUM 6.8 g/dL (6.4-8.2)
[2023-04-05] MEDS: FAMOTIDINE (20 MG) 20 MG TABLET PO SCH (08:43)
[2023-04-05] MEDS: BUMETANIDE (1 MG) 1 MG TABLET PO SCH (08:43)
[2023-04-05] MEDS: ENOXAPARIN SODIUM 100 MG/ML DISP.SYRIN SQ SCH (08:43)
[2023-04-05] MEDS: RIFAXIMIN 550 MG TABLET PO SCH (08:43)
[2023-04-05] MEDS: PROPRANOLOL HCL 10 MG TABLET PO SCH (08:45)
[2023-04-05] MEDS: QUETIAPINE FUMARATE 25 MG TABLET PO SCH (08:45)
[2023-04-05 09:00] VITALS: BP 117/78; TEMP 98.4; O2SAT 96
[2023-04-05] MEDS ORDERED: MAGNESIUM OXIDE 400 MG TABLET PO ONE (10:00)
[2023-04-05 22:37] LABS: OSMOLALITY,URINE 557 mOS/kg (340-1090)
[2023-04-06] MEDS ORDERED: BUMETANIDE (1 MG) 1 MG TABLET PO SCH (09:00)
== END 2023-04-05 14:25 | DRG 981 ==
LOC: ER 16:48 → MED 19:52
PROVIDERS: ADMIT Internal Medicine; ATTEND Internal Medicine
PROC: 0T9B70Z Drainage of Bladder with Drainage Device, Via Natural or Artificial Opening (ICD-10-PCS; 2023-03-29)
PROC: 0KBW3ZZ Excision of Left Foot Muscle, Percutaneous Approach (ICD-10-PCS; principal; 2023-03-30)
PROC: 0KBS3ZZ Excision of Right Lower Leg Muscle, Percutaneous Approach (ICD-10-PCS; 2023-03-30)
PROC: 5A09357 Assistance with Respiratory Ventilation, Less than 24 Consecutive Hours, Continuous Positive Airway Pressure (ICD-10-PCS; 2023-03-30)
DX: N39.0 Urinary tract infection, site not specified (principal); E43 Unspecified severe protein-calorie malnutrition; J96.91 Respiratory failure, unspecified with hypoxia; D68.59 Other primary thrombophilia; S37.39XA Other injury of urethra, initial encounter; E87.1 Hypo-osmolality and hyponatremia; L97.528 Non-pressure chronic ulcer of other part of left foot with other specified severity; L97.518 Non-pressure chronic ulcer of other part of right foot with other specified severity; L97.818 Non-pressure chronic ulcer of other part of right lower leg with other specified severity; I50.32 Chronic diastolic (congestive) heart failure; N17.9 Acute kidney failure, unspecified; T50.2X5A Adverse effect of carbonic-anhydrase inhibitors, benzothiadiazides and other diuretics, initial encounter; B96.89 Other specified bacterial agents as the cause of diseases classified elsewhere; R31.0 Gross hematuria; W44.8XXA Other foreign body entering into or through a natural orifice, initial encounter; Y92.129 Unspecified place in nursing home as the place of occurrence of the external cause; I25.2 Old myocardial infarction; Z74.09 Other reduced mobility; E11.51 Type 2 diabetes mellitus with diabetic peripheral angiopathy without gangrene; E11.42 Type 2 diabetes mellitus with diabetic polyneuropathy; I70.245 Atherosclerosis of native arteries of left leg with ulceration of other part of foot; I70.235 Atherosclerosis of native arteries of right leg with ulceration of other part of foot; I70.238 Atherosclerosis of native arteries of right leg with ulceration of other part of lower leg; Z89.422 Acquired absence of other left toe(s); Z89.421 Acquired absence of other right toe(s); Z86.16 Personal history of COVID-19; E66.01 Morbid (severe) obesity due to excess calories; Z68.36 Body mass index [BMI] 36.0-36.9, adult; I27.20 Pulmonary hypertension, unspecified; I11.0 Hypertensive heart disease with heart failure; I48.91 Unspecified atrial fibrillation; S52.572D Other intraarticular fracture of lower end of left radius, subsequent encounter for closed fracture with routine healing; X58.XXXD Exposure to other specified factors, subsequent encounter; Z79.84 Long term (current) use of oral hypoglycemic drugs; Z79.01 Long term (current) use of anticoagulants; Z79.899 Other long term (current) drug therapy; D69.6 Thrombocytopenia, unspecified; E87.6 Hypokalemia; D50.8 Other iron deficiency anemias; E11.65 Type 2 diabetes mellitus with hyperglycemia; E11.621 Type 2 diabetes mellitus with foot ulcer; E11.622 Type 2 diabetes mellitus with other skin ulcer; E86.1 Hypovolemia; Z86.718 Personal history of other venous thrombosis and embolism; I25.10 Atherosclerotic heart disease of native coronary artery without angina pectoris; K76.9 Liver disease, unspecified; F19.10 Other psychoactive substance abuse, uncomplicated; R60.0 Localized edema
CPT/HCPCS: 36415; 71045-TC; 73110; 80048-TC; 80053-TC; 80076-TC; 81001; 82570-TC; 82962-TC; 83540-TC; 83690-TC; 83735-TC; 83935-TC; 84100-TC; 84300-TC; 84443-TC; 84550-TC; 85025-TC; 85730-TC; 87081-TC; 87086-TC; 94660; 94799-TC; 97112-TC; 97530-TC; A4217; A4223; A6253; A6403; G0378; J0696; J1650; J1815; J7030; J7040; J7050; J7060

== ENCOUNTER 2023-04-06 13:28 | Emergency (ER) | payer MEDICARE, OTHER ==
[~2023-04-06] VITALS: Ht 177.8 cm; Wt 108.9 kg
[~2023-04-06 13:28] MED LIST changes: +CEPH500C2 PO; +POVI3780 TP; -PROP10TA68 PO; +PROP20TA7 PO; -RIVA10TA PO; +XEROFORM TD
[2023-04-06 17:55] VITALS: BP 101/66; TEMP 97.3; O2SAT 100
== END 2023-04-06 17:56 | disposition home or self-care (01) ==
LOC: ER 13:28
DX: R45.4 Irritability and anger (principal); I10 Essential (primary) hypertension; K21.9 Gastro-esophageal reflux disease without esophagitis; E11.9 Type 2 diabetes mellitus without complications; Z79.84 Long term (current) use of oral hypoglycemic drugs; Z79.899 Other long term (current) drug therapy